=== PATIENT | female | born 1950 | race Hispanic/Latino ===

== ENCOUNTER 2017-07-21 10:29 | Inpatient (IN) | payer OTHER ==
[2017-07-21] MEDS ORDERED: ONDANSETRON 4 MG/2 ML VIAL ONE (14:15)
[2017-07-21] MEDS ORDERED: MORPHINE 4 MG/ML SYR ONE ×2 (14:15→17:08)
--- NOTE | 2017-07-21 15:02 | RAD REPORT ---
EXAM DESCRIPTION: RAD - Foot Right 3 View - 07/21/2017 2:18 pm CLINICAL HISTORY: Pain and swelling right first toe COMPARISON: None. FINDINGS: No fracture, dislocation or periosteal reaction of the first toe. There is subtle cortical irregularity along the medial base second proximal phalanx only appreciated on 1 of the three views. Fracture is not likely unless there are focal symptoms at the base of the se cond proximal phalanx. [id number] degenerative change present at the first MTP joint. There is mild IP joint space nirmal rowing at the first toe. No erosive or destructive changes identifiable. No air or foreign body seen. Patient has a large plantar spur and a small Achilles spur. Midfoot degenerative changes relatively mild. No air or foreign body in the soft tissues. IMPRESSION: Soft tissue swelling around the first toe is present but no air or foreign body identifi able. Mild first toe IP joint and mild to moderate first MTP joint degenerative change. No acute or destruc tive bone process. Osteomyelitis can exist prior to bone destruction on film. Subtle irregularity of the base second proximal phalanx seen only on one view. Fracture is doubtful.
[2017-07-21 15:04] LABS: Potassium 4.4 mEq/L (3.6-5.0)
[2017-07-21] MEDS ORDERED: VANCOMYCIN 1 GM/250 ML BAG ONE (15:20)
[2017-07-21] MEDS ORDERED: Levofloxacin500mg IV 500 MG/100 ML BAG IV ONE (15:20)
[2017-07-21 15:58] LABS: Absolute Lymphocytes (CBC) 1.4 K/uL (0.7-4.9); Absolute Monocytes 0.4 K/uL (0.1-1.3); Absolute Neutrophil 8.9 K/uL (1.8-8.0); Basophils % 0.3 % (0-1.3); Eosinophils % 0.6 % (0-4.4); Hematocrit 32.8 % (36.0-45.0); MCH 29.1 pg (27.0-35.0); MPV 8.3 fL (7.6-11.3); Monocytes % 4.1 % (3.3-12.3); RBC Red Blood Cell Count 3.86 M/uL (3.86-4.86)
[2017-07-21 16:51] LABS: Urine Blood NEGATIVE (NEG); Urine Glucose NEGATIVE (NEG); Urine Protein NEGATIVE (NEG); Urine Specific Gravity 1.015 (1.005-1.030)
--- NOTE | 2017-07-21 16:54 | ER ---
Nurse's Notes [facility] Name: Mariah Jones Age: 67 yrs Sex: Female : 1950 Arrival Date: 07/21/2017 Time: 10:33 Bed 5 Private MD: None, None Diagnosis: Cellulitis of right toe;Cutaneous abscess of foot Presentation: 07/21 10:52 Presenting complaint: Patient states: Pain and redness to right great toe since aj Tuesday. Patient reports removing an ingrown toenail recently and then dropping a can on her toe on Tuesday. Transition of care: patient was not received from another setting of care. Onset of symptoms was July 19, 2017. Care prior to arrival: None. 10:52 Method Of Arrival: Wheelchair 10:52 Acuity: AMEE 3 15:18 Risk Assessment: Do you want to hurt yourself or someone else? Patient reports no tw2 desire to harm self or others. Initial Sepsis Screen: Does the patient meet any 2 criteria? HR > 90 bpm. Does the patient have a suspected source of infection? Yes: Skin breakdown/wound Other: Right great toenail. Triage Assessment: 10:54 General: Appears in no apparent distress. comfortable, Behavior is calm, cooperative, aj agitated. Pain: Complains of pain in right first toe and Right first toenail. Neuro: Level of Consciousness is awake, alert, obeys commands, Oriented to person, place, time, situation, Appropriate for age. Respiratory: Airway is patent Respiratory effort is even, unlabored, Respiratory pattern is regular, symmetrical. Derm: Skin is intact, is healthy with good turgor, Skin is pink, warm \T\ dry. normal, Wound noted right first toe and Right first toenail. Historical: - Allergies: 10:54 GABAPENTIN; aj - PMHx: 10:54 Diabetes - NIDDM; aj - PSHx: 10:54 Heart Surgery; Knee surgery; Hysterectomy; aj - Immunization history:: Last tetanus immunization: unknown. - Social history:: Smoking status: Patient/guardian denies using tobacco. - Ebola Screening: : Patient denies travel to an Ebola-affected area in the 21 days before illness onset. Screenin:17 Abuse screen: Denies threats or abuse. Nutritional screening: No deficits noted. tw2 Tuberculosis screening: No symptoms or risk factors identified. Fall Risk None identified. Assessment: 14:33 Reassessment: Patient appears in no apparent distress at this time. No changes from rv previously documented assessment. Patient and/or family updated on plan of care and expected duration. Pain level reassessed. Patient is alert, oriented x 3, equal unlabored respirations, skin warm/dry/pink. 15:17 Reassessment: Patient appears in no apparent distress at this time. No changes from tw2 previously documented assessment. Patient and/or family updated on plan of care and expected duration. Pain level reassessed. Patient is alert, oriented x 3, equal unlabored respirations, skin warm/dry/pink. 16:17 Reassessment: Patient appears in no apparent distress at this time. No changes from tw2 previously documented assessment. Patient and/or family updated on plan of care and expected duration. Pain level reassessed. Patient is alert, oriented x 3, equal unlabored respirations, skin warm/dry/pink. 17:00 Reassessment: Patient appears in no apparent distress at this time. No changes from tw2 previously documented assessment. Patient and/or family updated on plan of care and expected duration. Pain level reassessed. Patient is alert, oriented x 3, equal unlabored respirations, skin warm/dry/pink. 18:01 Reassessment: Patient appears in no apparent distress at this time. No changes from tw2 previously documented assessment. Patient and/or family updated on plan of care and expected duration. Pain level reassessed. Patient is alert, oriented x 3, equal unlabored respirations, skin warm/dry/pink. 19:29 General: Appears in no apparent distress. comfortable, Behavior is calm, cooperative, ao appropriate for age. Pain: Complains of pain in back. Neuro: Level of Consciousness is awake, alert, obeys commands, Oriented to person, place, time, situation, Appropriate for age. Cardiovascular: Patient's skin is warm and dry. Respiratory: Airway is patent Respiratory effort is even, unlabored, Respiratory pattern is regular, symmetrical. GI: Abdomen is non-distended. : No signs and/or symptoms were reported regarding the genitourinary system. EENT: No signs and/or symptoms were reported regarding the EENT system. Derm: Skin is intact, Skin temperature is warm. Musculoskeletal: No signs and/or symptoms reported regarding the musculoskeletal system. Vital Signs: 10:54 BP 126 / 90; Pulse 120; Resp 19; Temp 98.4; Pulse Ox 94% on R/A; Weight 86.18 kg; aj Height 5 ft. 2 in. (157.48 cm); 14:33 BP 174 / 79; Pulse 108; Resp 16; Pulse Ox 95% on R/A; rv 15:11 BP 164 / 76; Pulse 105; Resp 17; Pulse Ox 100% on R/A; ag 16:12 BP 160 / 133; Pulse 109; Resp 17; Pulse Ox 97% on R/A; tw2 17:00 BP 145 / 69; Pulse 108; Resp 14; Pulse Ox 96% on R/A; tw2 18:00 BP 150 / 71; Pulse 109; Resp 20; Pulse Ox 96% on R/A; tw2 19:21 BP 134 / 74; Pulse 126; Resp 18; Temp 100.3(O); Pulse Ox 98% on R/A; lp1 19:29 BP 134 / 74; Pulse 116; Resp 16; Pulse Ox 96% on R/A; Pain 4/10; ao 10:54 Body Mass Index 34.75 (86.18 kg, 157.48 cm) aj ED Course: 10:33 Patient arrived in ED. mr 10:34 None, None is Private Physician. mr 10:53 Triage completed. aj 10:54 Arm band placed on right wrist. Patient placed in waiting room, Patient notified of aj wait time. 11:55 Notified Charge Nurse of Patient's vital signs and need for room. aj 13:40 Marcos Ryan PA is PHCP. jr8 13:40 Damon Soni MD is Attending Physician. jr8 13:40 Placed in gown. Bed in low position. front desk monitor on. Pulse ox on. NIBP on. Warm tw2 blanket given. 13:57 Nicky Pendleton, ALEXANDRO is Primary Nurse. tw2 14:14 X-ray completed. Portable x-ray completed in exam room. Patient tolerated procedure ml well. 14:15 XRAY Foot RIGHT 3 View In Process Unspecified. EDMS 14:25 Inserted saline lock: 22 gauge in left antecubital area, using aseptic technique. Blood tw2 collected. 16:53 Deana Goins MD is Hospitalizing Provider. jr8 18:02 No provider procedures requiring assistance completed. tw2 18:02 Patient admitted, IV remains in place. tw2 19:36 Primary Nurse role handed off by Nicky Pendleton RN tw2 19:39 Sayra Hi, ALEXANDRO is Primary Nurse. lp1 Administered Medications: 14:28 Drug: Zofran 4 mg Route: IVP; Site: left antecubital; tw2 15:00 Follow up: Response: No adverse reaction tw2 14:30 Drug: morphine 4 mg Route: IVP; Site: left antecubital; tw2 15:00 Follow up: Response: No adverse reaction tw2 15:41 Drug: vancoMYCIN 1 grams Route: IVPB; Infused Over: 2 hrs; Site: left antecubital; rv 19:08 Follow up: IV Status: Completed infusion ae1 15:41 Drug: LevaQUIN 500 mg Volume: 100 ml; Route: IVPB; Infused Over: 60 mins; Site: left rv antecubital; 19:08 Follow up: IV Status: Completed infusion ae1 17:09 Drug: morphine 4 mg Route: IVP; Site: left antecubital; ae1 17:45 Follow up: Response: No adverse reaction; Pain is decreased tw2 Point of Care Testing: Blood Glucose: 14:28 Blood Glucose: 247 mg/dL; tw2 19:23 Blood Glucose: 310 mg/dL; lp1 Ranges: Outcome: 16:53 Decision to Hospitalize by Provider. jr8 18:02 Admitted to Med/surg accompanied by nurse, via wheelchair, Report called to receiving tw2 nurse 18:02 Condition: stable 18:02 Instructed on the need for admit. 19:46 Admitted to Med/surg accompanied by tech, via wheelchair, room 205, with chart, Report lp1 called to Jaimee Burks RN 19:54 Patient left the ED. lp1 Signatures: Dispatcher [employer] EDMS Aline Blackburn RN RN aj Rivera, Maria mr Syed, Sayra Peace RN RN lp1 Marcos Ryan PA PA jr8 Wendie Mascorro Alex, RN RN ao Wise, Tara, RN RN tw2 Usman Rogers RN RN ae1 John Martinez RN RN rv Corrections: (The following items were deleted from the chart) 10:55 10:54 Arm band placed on right wrist. Patient placed in an exam room, aj aj 14:36 14:30 morphine 4 mg IVP in left antecubital rv tw2 14:36 14:28 Zofran 4 mg IVP in left antecubital rv tw2 14:36 14:36 Response: No adverse reaction tw2 tw2
--- NOTE | 2017-07-21 16:54 | EDPHYS ---
Physician Documentation [facility] Name: Mariah Jones Age: 67 yrs Sex: Female : 1950 Arrival Date: 07/21/2017 Time: 10:33 Bed 5 Private MD: None, None ED Physician Damon Soni HPI: 07/21 16:44 This 67 yrs old Female presents to ER via Wheelchair with complaints of Toe jr8 Pain. 16:44 The patient presents with pain, swelling, tenderness. The complaints affect the right jr8 foot. Context: The problem was sustained at home. Onset: The symptoms/episode began/occurred gradually, 3 day(s) ago. Modifying factors: The symptoms are alleviated by nothing, the symptoms are aggravated by weight bearing, movement, wearing shoes. Associated signs and symptoms: The patient has no apparent associated signs or symptoms. Severity of symptoms: At their worst the symptoms were moderate, in the emergency department the symptoms are unchanged. The patient has not experienced similar symptoms in the past. The patient has not recently seen a physician. Patient stated that she tried to get an ingrown nail out of her great toe on right side. Stated that since then has had increased redness, swelling, and now exudate formation under the skin. Cannot bear the pain . Historical: - Allergies: 10:54 GABAPENTIN; aj - PMHx: 10:54 Diabetes - NIDDM; aj - PSHx: 10:54 Heart Surgery; Knee surgery; Hysterectomy; aj - Immunization history:: Last tetanus immunization: unknown. - Social history:: Smoking status: Patient/guardian denies using tobacco. - Ebola Screening: : Patient denies travel to an Ebola-affected area in the 21 days before illness onset. ROS: 16:44 Eyes: Negative for injury, pain, redness, and discharge, ENT: Negative for injury, jr8 pain, and discharge, Neck: Negative for injury, pain, and swelling, Cardiovascular: Negative for chest pain, palpitations, and edema, Respiratory: Negative for shortness of breath, cough, wheezing, and pleuritic chest pain, Abdomen/GI: Negative for abdominal pain, nausea, vomiting, diarrhea, and constipation, Back: Negative for injury and pain, Skin: Negative for injury, rash, and discoloration, Neuro: Negative for headache, weakness, numbness, tingling, and seizure. 16:44 MS/extremity: Positive for erythema, pain, swelling, tenderness, of the right first toe. Exam: 16:44 Cardiovascular: Regular rate and rhythm with a normal S1 and S2. No gallops, murmurs, jr8 or rubs. Normal PMI, no JVD. No pulse deficits. Respiratory: Lungs have equal breath sounds bilaterally, clear to auscultation and percussion. No rales, rhonchi or wheezes noted. No increased work of breathing, no retractions or nasal flaring. Skin: Warm, dry with normal turgor. Normal color with no rashes, no lesions, and no evidence of cellulitis. Neuro: Awake and alert, GCS 15, oriented to person, place, time, and situation. Cranial nerves II-XII grossly intact. Motor strength 5/5 in all extremities. Sensory grossly intact. Cerebellar exam normal. Normal gait. 16:44 Musculoskeletal/extremity: Extremities: grossly normal except: noted in the right first toe: Patient has a swollen red right great toe. Abscess formation noted to lateral cuticle region. Surrounding cellulitis present. , ROM: intact in all extremities, Circulation is intact in all extremities. Sensation intact. Vital Signs: 10:54 BP 126 / 90; Pulse 120; Resp 19; Temp 98.4; Pulse Ox 94% on R/A; Weight 86.18 kg; aj Height 5 ft. 2 in. (157.48 cm); 14:33 BP 174 / 79; Pulse 108; Resp 16; Pulse Ox 95% on R/A; rv 15:11 BP 164 / 76; Pulse 105; Resp 17; Pulse Ox 100% on R/A; ag 16:12 BP 160 / 133; Pulse 109; Resp 17; Pulse Ox 97% on R/A; tw2 17:00 BP 145 / 69; Pulse 108; Resp 14; Pulse Ox 96% on R/A; tw2 18:00 BP 150 / 71; Pulse 109; Resp 20; Pulse Ox 96% on R/A; tw2 19:21 BP 134 / 74; Pulse 126; Resp 18; Temp 100.3(O); Pulse Ox 98% on R/A; lp1 19:29 BP 134 / 74; Pulse 116; Resp 16; Pulse Ox 96% on R/A; Pain 4/10; ao 10:54 Body Mass Index 34.75 (86.18 kg, 157.48 cm) aj MDM: 13:40 Patient medically screened. [facility] 16:44 Data reviewed: vital signs, nurses notes, lab test result(s), radiologic studies, plain [facility] films, and as a result, I will admit patient. Data interpreted: Pulse oximetry: on room air is 97 %. Interpretation: normal. Counseling: I had a detailed discussion with the patient and/or guardian regarding: the historical points, exam findings, and any diagnostic results supporting the discharge/admit diagnosis, lab results, radiology results, the need for further work-up and treatment in the hospital. Physician consultation: Deana Goins MD was called at 16:47, was contacted at 16:47, regarding admission, to the medical/surgical unit. consult, patient's condition, and will see patient. 07/21 14:05 Order name: CBC with Diff; Complete Time: 16:09 [facility] 07/21 14:05 Order name: Basic Metabolic Panel; Complete Time: 15:10 [facility] 07/21 14:06 Order name: Blood Culture Adult (2) [facility] 07/21 16:27 Order name: Urine Dipstick--Ancillary (enter results) 07/21 17:06 Order name: C-Reactive Protein [facility] 07/21 17:06 Order name: Procalcitonin [facility] 07/21 14:05 Order name: XRAY Foot RIGHT 3 View; Complete Time: 15:10 [facility] 07/21 17:06 Order name: CONS [facility] Cons [facility] 07/21 17:06 Order name: CONS Physician Consult [facility] 07/21 14:05 Order name: IV; Complete Time: 14:32 [facility] 07/21 17:06 Order name: Heart Healthy [facility] Administered Medications: 14:28 Drug: Zofran 4 mg Route: IVP; Site: left antecubital; tw2 15:00 Follow up: Response: No adverse reaction tw2 14:30 Drug: morphine 4 mg Route: IVP; Site: left antecubital; tw2 15:00 Follow up: Response: No adverse reaction tw2 15:41 Drug: vancoMYCIN 1 grams Route: IVPB; Infused Over: 2 hrs; Site: left antecubital; rv 19:08 Follow up: IV Status: Completed infusion ae1 15:41 Drug: LevaQUIN 500 mg Volume: 100 ml; Route: IVPB; Infused Over: 60 mins; Site: left rv antecubital; 19:08 Follow up: IV Status: Completed infusion ae1 17:09 Drug: morphine 4 mg Route: IVP; Site: left antecubital; ae1 17:45 Follow up: Response: No adverse reaction; Pain is decreased tw2 Point of Care Testing: Blood Glucose: 14:28 Blood Glucose: 247 mg/dL; tw2 19:23 Blood Glucose: 310 mg/dL; lp1 Ranges: Critical Glucose Levels:Adult <50 mg/dl or >400 mg/dl <40 mg/dl or >180 mg/dl Disposition: 07/22 10:43 Co-signature as Attending Physician, Damon Soni MD I agree with the assessment and kdr plan of care. Disposition: 07/21/17 16:53 Hospitalization ordered by Deana Goins for Inpatient Admission. Preliminary diagnosis are Cellulitis of right toe, Cutaneous abscess of foot. - Bed requested for Telemetry/MedSurg (Inpatient). - Status is Inpatient Admission. lp1 - Condition is Stable. - Problem is new. - Symptoms have improved. UTI on Admission? No Signatures: Dispatcher [employer] EDMS Consuelo Linares Diana, RN RN dw Aline Blackburn RN RN aj Rittger, Kevin, MD MD [facility] Sayra Hi RN RN lp1 Marcos Ryan PA PA jr8 Nicky Pendleton RN RN tw2 Usman Rogers RN RN ae1 John Martinez RN RN rv Corrections: (The following items were deleted from the chart) 07/21 17:51 16:53 Hospitalization Ordered by Deana Goins MD for Inpatient Admission. Preliminary bd diagnosis is Cellulitis of right toe; Cutaneous abscess of foot. Bed requested for Telemetry/MedSurg (Inpatient). Status is Inpatient Admission. Condition is Stable. Problem is new. Symptoms have improved. UTI on Admission? No. jr8 19:02 17:51 07/21/2017 16:53 Hospitalization Ordered by Deana Goins MD for Inpatient dw Admission. Preliminary diagnosis is Cellulitis of right toe; Cutaneous abscess of foot. Bed requested for Telemetry/MedSurg (Inpatient). Status is Inpatient Admission. Condition is Stable. Problem is new. Symptoms have improved. UTI on Admission? No. bd 19:07 19:02 07/21/2017 16:53 Hospitalization Ordered by Deana Goins MD for Inpatient dw Admission. Preliminary diagnosis is Cellulitis of right toe; Cutaneous abscess of foot. Bed requested for Telemetry/MedSurg (Inpatient). Status is Inpatient Admission. Condition is Stable. Problem is new. Symptoms have improved. UTI on Admission? No. dw 19:26 19:07 07/21/2017 16:53 Hospitalization Ordered by Deana Goins MD for Inpatient dw Admission. Preliminary diagnosis is Cellulitis of right toe; Cutaneous abscess of foot. Bed requested for Telemetry/MedSurg (Inpatient). Status is Inpatient Admission. Condition is Stable. Problem is new. Symptoms have improved. UTI on Admission? No. dw 19:54 19:26 07/21/2017 16:53 Hospitalization Ordered by Deana Goins MD for Inpatient lp1 Admission. Preliminary diagnosis is Cellulitis of right toe; Cutaneous abscess of foot. Bed requested for Telemetry/MedSurg (Inpatient). Status is Inpatient Admission. Condition is Stable. Problem is new. Symptoms have improved. UTI on Admission? No. dw
[2017-07-21] MEDS ORDERED: ONDANSETRON 4 MG/2 ML VIAL IV PRN (17:01)
[2017-07-21] MEDS ORDERED: ACETAMINOPHEN 500 MG TAB PO PRN (17:01)
--- NOTE | 2017-07-21 17:28 | P.HP ---
Certification for Inpatient Patient admitted to: Observation With expected LOS: <2 Midnights Patient will require the following post-hospital care: None Practitioner: I am a practitioner with admitting privileges, knowledge of patient current condition, hospital course, and medical plan of care. Services: Services provided to patient in accordance with Admission requirements found in Title 42 Section 412.3 of the Code of Federal Regulations Patient History Date of Service: 07/21/17 Primary Care Provider: None Reason for admission: Right Toe Infection History of Present Illness: This is a 67-year-old female with significant past medical history of diabetes, high blood pressure, hyperlipidemia and obesity who presented to the ED complaining of having right great toe pain. Patient stated that she started noticing her right great chest swelling about 2-3 days ago and got progressively worse. Patient stated that she has an ingrown nail that she was trying to get out and then started noticing that her toe was getting infected. Today she was in not able to bear any weight on the fact in the area and was not able to bend her however as well and decided to come to the ER for further care. Patient stated that this morning she also dropped a cane on her foot that hit her right great toe as well. Patient states that the pain is excruciating. No fever no chills noted at home. No other associated symptoms either. Patient states that she is still able to feel sensation on the side however is not able to bear weight on the toe. Allergies gabapentin Adverse Reaction (Verified 02/19/16 19:21) Nausea/Vomiting Home Medications: Amlodipine/Atorvastatin [Amlodipine-Atorvast 10-40 mg] 10 mg PO DAILY 02/19/16 Aspirin [Aspirin EC 81 MG] 81 mg PO DAILY 02/19/16 Carisoprodol 350 mg PO Q4H PRN 02/19/16 Glimepiride [Amaryl] 4 mg PO BID 02/19/16 Hydrocodone Bit/Acetaminophen [[place] 10-325 Tablet] 1 each PO Q4H PRN 02/19/16 Multivitamin [Tab-A-Cristin] 1 tab PO DAILY 02/19/16 Amitriptyline [Elavil*] 10 mg PO BEDTIME #30 tab 02/20/16 - Past Medical/Surgical History Diabetic: Yes -: DM -: HTN -: Hysterectomy -: Aortic Valve Replacement - Family History Father -: Heart disease, Hypertension, Diabetes Brother -: Heart disease, Stroke Notes: both brothers had stroke. 2 brothers had heart disease Sister -: Diabetes Mother -: Diabetes - Social History Alcohol use: Yes CD- Drugs: No Caffeine use: Yes Review of Systems General: As per HPI Physical Examination - Physical Exam General: Alert, In no apparent distress, Oriented x3 HEENT: Atraumatic Neck: Supple Respiratory: Clear to auscultation bilaterally, Normal air movement Cardiovascular: Regular rate/rhythm, Normal S1 S2 Gastrointestinal: Normal bowel sounds, Soft and benign, Non-distended, No tenderness Musculoskeletal: No tenderness Integumentary: Tenderness/swelling, Erythema, Warmth, Other (Right Great toe with Erythema, warmth and tenderness. Ingrown toe nail noted. ) Neurological: Normal speech, Normal strength at 5/5 x4 extr, Normal tone Lymphatics: No axilla or inguinal lymphadenopathy - Studies Laboratory Data (last 24 hrs) 07/21/17 14:20: Sodium 137, Potassium 4.4, BUN 9, Creatinine 0.84, Glucose 246 H 07/21/17 14:20: WBC 10.9, Hgb 11.2 L, Hct 32.8 L, Plt Count 354 Assessment and Plan - Problems (Diagnosis) (1) Wound infection Current Visit: Yes Status: Acute Plan: Wound infection of the right great toe. -IV vanc and zosyn -Wound culture pending -Blood culture pending -Surgery Consulted for possible debriement (2) Ingrown nail of great toe of right foot Current Visit: Yes Status: Acute Plan: See # 1 (3) Diabetes Current Visit: Yes Status: Chronic Plan: Restart home medication Qualifiers: Diabetes mellitus type: type 2 Diabetes mellitus intermodal dispatcher insulin use: without intermodal dispatcher use Diabetes mellitus complication status: with circulatory complication Diabetes mellitus complication detail: with other circulatory complications Qualified Code(s): E11.59 - Type 2 diabetes mellitus with other circulatory complications (4) HTN (hypertension) Current Visit: Yes Status: Chronic Qualifiers: Hypertension type: essential hypertension Qualified Code(s): I10 - Essential (primary) hypertension (5) Hyperlipidemia Current Visit: Yes Status: Chronic Qualifiers: Hyperlipidemia type: mixed hyperlipidemia Qualified Code(s): E78.2 - Mixed hyperlipidemia - Advance Directives Does patient have a Living Will: No Does patient have a Durable POA for Healthcare: No
[2017-07-21] MEDS ORDERED: VANCOMYCIN 1.25 GM in NA CHLORIDE 0.9% 250 ML IVPB SCH (18:00)
[2017-07-21] MEDS: VANCOMYCIN 1.5 GM in NA CHLORIDE 0.9% 500 ML IVPB SCH (18:00)
[2017-07-21] MEDS ORDERED: ACETAMINOPHEN 500 MG TAB ONE (19:26)
[2017-07-21 20:51] LABS: Urine Appearance CLEAR; Urine Bilirubin NEGATIVE (NEG); Urine Blood NEGATIVE (NEG); Urine Color YELLOW; Urine Glucose 1+ (NEG); Urine Protein NEGATIVE (NEG); Urine Specific Gravity 1.015 (1.005-1.030); Urine Urobilinogen 0.2 mg/dL (0.2-1.0); Urine pH 6.5 (5.0-7.0)
[2017-07-21] MEDS ORDERED: PNEUMOCOCCAL VACCINE 0.5 ML IMVAC ONE (20:55)
[2017-07-21 20:58] LABS: Urine Microscopic Reflex NO UMIC
[2017-07-21] MEDS ORDERED: VANCOMYCIN 500 MG in NA CHLORIDE 0.9% 100 ML IV ONE (21:30)
[2017-07-21] MEDS ORDERED: VANCOMYCIN 500 MG/VIAL ONE (21:31)
[2017-07-21] MEDS ORDERED: NA CHLORIDE 0.9% 100 ML ONE (21:32)
[2017-07-21] MEDS: MORPHINE 4 MG/ML SYR IV PRN (22:01)
[2017-07-21] MEDS: INSULIN -REGULAR HUMAN 50 UNIT/0.5 ML ML SQ SCH (22:02)
[2017-07-21] MEDS: PIPER/TAZO/NS 3.375gm 3.375 GM/100 ML BAG IVPB SCH (22:03)
[2017-07-21] MEDS: NA CHLORIDE 0.9% 1,000 ML IV SCH (22:04)
[2017-07-22] MEDS: PIPER/TAZO/NS 3.375gm 3.375 GM/100 ML BAG IVPB SCH ×4 (02:25→17:37)
[2017-07-22] MEDS: MORPHINE 4 MG/ML SYR IV PRN ×2 (04:16→08:18)
[2017-07-22] MEDS: NA CHLORIDE 0.9% 1,000 ML IV SCH ×3 (04:18→16:45)
[2017-07-22 05:07] LABS: Absolute Monocytes 0.6 K/uL (0.1-1.3); Absolute Neutrophil 5.3 K/uL (1.8-8.0); Basophils % 0.5 % (0-1.3); Hematocrit 28.7 % (36.0-45.0); Lymphocytes % 24.8 % (15.3-44.8); MCH 32.2 pg (27.0-35.0); MCV 94.6 fL (80-100); MPV 7.7 fL (7.6-11.3); Monocytes % 7.4 % (3.3-12.3); RBC Red Blood Cell Count 3.03 M/uL (3.86-4.86)
[2017-07-22 05:23] LABS: Albumin 3.5 g/dL (3.2-5.5); Bilirubin Total 0.5 mg/dL (0.3-1.2); Magnesium 1.6 mg/dL (1.8-2.5); Phosphorus 3.6 mg/dL (2.5-4.3); Potassium 3.7 mEq/L (3.6-5.0); Protein, Total 6.9 g/dL (6.0-8.3)
[2017-07-22] MEDS ORDERED: MAGNESIUM SULFATE 1 gm IVPB 1 GM/100 ML BAG IV ONE ×2 (05:49→08:00)
[2017-07-22] MEDS ORDERED: KCL 20 MEQ/100 mL IVPB 20 MEQ/100 ML BAG IV SCH (05:52)
[2017-07-22] MEDS: INSULIN -REGULAR HUMAN 50 UNIT/0.5 ML ML SQ SCH ×4 (08:22→21:25)
--- NOTE | 2017-07-22 12:08 | P.OP ---
Preoperative diagnosis: Infected Right Great Toe Wound Postoperative diagnosis: same Primary procedure: I and D and Debridement Right Great Toe Wound Secondary procedure: Partial Resection of the Nail Anesthesia: General Estimated blood loss: min Specimen: Pus and Nail Findings: as above Complications: None Transferred to: Recovery Room Condition: Good
[2017-07-22] MEDS ORDERED: MIDAZOLAM HCL 2 MG/2 ML INJ ONE (12:15)
[2017-07-22] MEDS ORDERED: FENTANYL CITR 250 MCG/5 ML ONE (12:15)
[2017-07-22] MEDS ORDERED: PROPOFOL 200 MG/20 ML VIAL IV ONE (12:15)
[2017-07-22] MEDS ORDERED: ONDANSETRON HCL 40 MG/20 ML VIAL ONE (12:15)
--- NOTE | 2017-07-22 14:15 | P.PN ---
Subjective Date of Service: 07/22/17 Primary Care Provider: None Chief Complaint: Right Toe Infection Subjective: Other (Patient with pain to the right great toe. Patient NPO for surgery.) Physical Examination - Vital Signs Temperature: 97.4 F Blood Pressure: 127/69 Pulse: 89 Respirations: 16 Pulse Ox (%): 96 - Physical Exam General: Alert, In no apparent distress, Oriented x3, Cooperative HEENT: Atraumatic Neck: Supple Respiratory: Clear to auscultation bilaterally, Normal air movement Cardiovascular: Normal pulses, Regular rate/rhythm Gastrointestinal: Normal bowel sounds, Soft and benign, Non-distended, No tenderness, No masses, No rebound, No guarding Integumentary: Other (Erythema, swelling to the right great toe. Ingrown toenail noted.) Neurological: Normal speech, Normal strength at 5/5 x4 extr, Normal tone, Normal affect - Studies Laboratory Data (last 24 hrs) 07/21/17 14:20: Sodium 137, Potassium 4.4, BUN 9, Creatinine 0.84, Glucose 246 H 07/21/17 14:20: WBC 10.9, Hgb 11.2 L, Hct 32.8 L, Plt Count 354 Medications List Reviewed: Yes Assessment & Plan - Problems (Diagnosis) (1) Anemia Current Visit: Yes Status: Chronic Plan: Patient with chronic anemia. Will check iron and B12 studies. Will monitor closely. Patient to have surgery today. Qualifiers: Anemia type: unspecified type Qualified Code(s): D64.9 - Anemia, unspecified (2) Ingrown nail of great toe of right foot Current Visit: Yes Status: Acute Plan: Patient has ingrown great toenail of right foot. Increase edema noted. Patient likely with infection process. Patient on IV vancomycin and Zosyn. Surgery is to be done today. Case discussed with surgery. Will continue with IV antibiotic therapy. Await culture results. Patient may require 2-3 days in the hospital. (3) Wound infection Current Visit: Yes Status: Acute Plan: Continue as above. (4) Diabetes Current Visit: Yes Status: Chronic Plan: Will restart her basal insulin. Will check A1c. Will monitor and adjust appropriately. Qualifiers: Diabetes mellitus type: type 2 Diabetes mellitus nursing home insulin use: without adjunct faculty for medical terminology use Diabetes mellitus complication status: with circulatory complication Diabetes mellitus complication detail: with other circulatory complications Qualified Code(s): E11.59 - Type 2 diabetes mellitus with other circulatory complications (5) HTN (hypertension) Current Visit: Yes Status: Chronic Plan: Will restart low-dose blood pressure medication. Will monitor and adjust appropriately. Qualifiers: Hypertension type: essential hypertension Qualified Code(s): I10 - Essential (primary) hypertension (6) Hyperlipidemia Current Visit: Yes Status: Chronic Plan: Will review home medication. Qualifiers: Hyperlipidemia type: mixed hyperlipidemia Qualified Code(s): E78.2 - Mixed hyperlipidemia Discharge Plan: Home Plan to discharge in: 48 Hours Time Spent Managing Pts Care (In Minutes): 55
[2017-07-22] MEDS ORDERED: D50W 25 GM/50 ML SYRINGE IV PRN (14:59)
[2017-07-22] MEDS ORDERED: GLUCAGON 1 MG/VIAL IM PRN (14:59)
[2017-07-22] MEDS: HYDROCODONE/APAP 10/325 TAB PO PRN ×2 (15:16→19:37)
--- NOTE | 2017-07-22 16:20 | PREOPCON ---
Date of Consultation: 07/21/2017 Reason: Infected right great toe. History Of Present Illness: The patient is a 67-year-old female with multiple medical problems, who came into the ER yesterday with right great toe pain. She started noticing swelling 2-3 days ago. S he dropped a can on her nail. She noticed that it was getting red and was getting more painful. She was picking at it. No fever or chills. No purulent discharge. Review of Systems: Otherwise unremarkable. Past Medical History: Significant for diabetes, hypertension, morbid obesity. Past Surgical History: Hysterectomy, aortic valve replacement. Allergies: GABAPENTIN. Social History: The patient does drink alcohol. Denies smoking. Family History: Significant for heart disease, stroke, and diabetes. Physical Examination: Vital Signs: Stable. She is afebrile. General: She is awake, alert, and oriented x3. Head and Neck: Cranial nerves 2 through 12 grossly within normal limits. No neck masses. No JVD. Throat clear. Neck is supple. Chest: Clear. Heart: S1, S2. Abdomen: Soft. Extremity: Palpable dorsalis pedis and posterior tibial pulses. The great toe on the right side is infected and has erythema, warmth, or edema. There is purulence and blister around the medial aspect of the toe on the distal as well as the medial. The toenail is digging into the soft tissue around the nail bed. There is no drainage. Laboratory Data: White count is 8.2, there was left shift on admission. Chemistry reviewed. Glucos e is elevated. Procalcitonin is less than 0.05. X-ray reviewed. It shows soft tissue swelling arou nd the first toe at present but no air or foreign body identifiable. Mild first toe IP joint. Mild to moderate first MTP joint degenerative changes. Fracture is doubtful. Assessment: Infected wound, right great toe. Recommendations: The patient will need incision and drainage and debridement of the abscess as well as try trimming the nail back a little bite away from the soft tissue to allow for better healing. T he antibiotics as ordered. We will institute local wound care after surgery. Discharge home once we get the cultures back. She can be discharged home on the appropriate oral antibiotics. The risks, benefits, alternatives were explained to place the patient. She understood and agreed. DUANE/JAMES Voice ID: [id number] Report ID: [id number]
[2017-07-22] MEDS: ENOXAPARIN 40 MG/0.4 ML SQ SCH (17:36)
[2017-07-22] MEDS: VANCOMYCIN 1.5 GM in NA CHLORIDE 0.9% 500 ML IVPB SCH (17:37)
[2017-07-22] MEDS ORDERED: INSULIN DETEMIR 14 UNIT SQ SCH (21:00)
[2017-07-22] MEDS ORDERED: INSULIN DETEMIR 100 UNIT/1 ML INSULIN SQ SCH (21:00)
[2017-07-22] MEDS: AMITRIPTYLINE 10 MG TAB PO SCH (21:24)
[2017-07-23] MEDS: HYDROCODONE/APAP 10/325 TAB PO PRN ×5 (00:09→21:26)
--- NOTE | 2017-07-23 00:10 | OP ---
Date of Procedure: 07/22/2017 Surgeon: Adelfo Bella MD Preoperative Diagnosis: Infected wound, right great toe with ingrown toenail. Postoperative Diagnosis: Infected wound, right great toe with ingrown toenail. Procedure: Incision, drainage and debridement of right toe infected wound and partial resection of t he toe nail. Estimated Blood Loss: Minimal. Specimen: Nail and pus. Findings: As above. Anesthesia: General. Complications: None. Disposition: The patient tolerated the procedure in stable condition and taken to recovery in good g eneral condition. Procedure In Detail: The patient was brought to the OR and placed in supine position. General anest hesia was begun. The patient was prepped and draped in the usual sterile fashion, Marcaine 0 5% used to do a digital block on the right great toe and then sharp dissection proceeded on the distal media l aspect of the right great toe near the nail bed. There was large pus there. It was unroofed. The skin was removed. Pus was evacuated. Cultures were done. The nail was dug into the soft tissue ar ound it and this was with rongeur, cut, debrided back all the way to the base of the nail bed until c omplete freeing of this area was done, then wound irrigated, bleeding controlled with cautery and sterile dressing was applied. The patient was awakened and taken to [facility] in good general condition. DUANE/JAMES Voice ID: [id number] Report ID: [id number]
[2017-07-23] MEDS: NA CHLORIDE 0.9% 1,000 ML IV SCH ×2 (00:12→10:00)
[2017-07-23] MEDS: PIPER/TAZO/NS 3.375gm 3.375 GM/100 ML BAG IVPB SCH ×4 (00:12→18:06)
[2017-07-23 04:47] VITALS: BMI 34.9
[2017-07-23 06:00] LABS: Absolute Lymphocytes (CBC) 2.5 K/uL (0.7-4.9); Absolute Monocytes 0.5 K/uL (0.1-1.3); Absolute Neutrophil 4.2 K/uL (1.8-8.0); Basophils % 1.1 % (0-1.3); Eosinophils % 3.4 % (0-4.4); Hematocrit 28.4 % (36.0-45.0); Lymphocytes % 32.7 % (15.3-44.8); MCH 29.2 pg (27.0-35.0); MCV 85.8 fL (80-100); MPV 8.1 fL (7.6-11.3); Monocytes % 7.2 % (3.3-12.3); RBC Red Blood Cell Count 3.31 M/uL (3.86-4.86)
[2017-07-23 06:16] LABS: Bilirubin Total 0.5 mg/dL (0.3-1.2); Ferritin 41.2 ng/ml (11.0-306.8); Magnesium 1.7 mg/dL (1.8-2.5); Potassium 4.1 mEq/L (3.6-5.0); Protein, Total 6.2 g/dL (6.0-8.3); Thyroid Stimulating Hormone 1.45 uIU/mL (0.34-5.60)
[2017-07-23] MEDS ORDERED: MAGNESIUM SULFATE 1 gm IVPB 1 GM/100 ML BAG IV ONE (06:45)
[2017-07-23] MEDS: MORPHINE 4 MG/ML SYR IV PRN (08:34)
[2017-07-23] MEDS: ASPIRIN EC 81 MG TAB PO SCH (08:35)
[2017-07-23] MEDS: INSULIN -REGULAR HUMAN 50 UNIT/0.5 ML ML SQ SCH ×4 (08:35→22:37)
[2017-07-23] MEDS ORDERED: AMLODIPINE 2.5 MG TAB PO SCH (09:00)
--- NOTE | 2017-07-23 12:03 | PN ---
Date of Progress Note: 07/23/2017 Subjective: The patient is awake, alert, feels better. Objective: Vital Signs. Stable. Afebrile. Extremities: Wound is clean. The redness is less. Laboratory Data: Cultures are pending, but initial Gram stain shows gram-positive cocci in chains an d clusters. Assessment: Status post incision, drainage and debridement of infected right great toe wound. Recommendations: Check the cultures and once we have specific bacteria and sensitivities, she can be discharged home on that. Wound care as ordered. She could follow up [facility] or my office in a couple of weeks. /MODL Voice ID: [id number] Report ID: [id number]
--- NOTE | 2017-07-23 13:25 | P.PN ---
Subjective Date of Service: 07/23/17 Primary Care Provider: None Chief Complaint: Right Toe Infection Subjective: Improving (Patient doing well. Pain under control. Patient status post surgery yesterday) Physical Examination - Vital Signs Temperature: 99.0 F Blood Pressure: 185/74 Pulse: 95 Respirations: 16 Pulse Ox (%): 94 - Physical Exam General: Alert, In no apparent distress, Oriented x3, Cooperative HEENT: Atraumatic Neck: Supple Respiratory: Clear to auscultation bilaterally, Normal air movement Cardiovascular: Normal pulses, Regular rate/rhythm Gastrointestinal: Normal bowel sounds, Soft and benign, Non-distended, No tenderness, No masses, No rebound, No guarding Integumentary: Other (Right toe shows partial nail removed. No significant edema noted.) Neurological: Normal speech, Normal strength at 5/5 x4 extr, Normal tone, Normal affect - Studies Medications List Reviewed: Yes Assessment & Plan - Problems (Diagnosis) (1) Anemia Current Visit: Yes Status: Chronic Plan: Patient found to have iron and B12 deficiency. Will start supplementation. Will monitor closely. Qualifiers: Anemia type: iron deficiency Iron deficiency anemia type: inadequate dietary iron intake Qualified Code(s): D50.8 - Other iron deficiency anemias (2) Ingrown nail of great toe of right foot Current Visit: Yes Status: Acute Plan: Patient had partial nail removed. Patient had debridement. Cultures obtained. Case discussed with surgery. Will continue IV antibiotic therapy. Will transition to oral and plan for discharge once culture results have been obtained. Will ambulate patient with physical therapy. Anticipate discharge in the next 1-2 days. (3) Wound infection Current Visit: Yes Status: Acute Plan: Continue as above. (4) Diabetes Current Visit: Yes Status: Chronic Plan: Will continue with insulin. Check A1c. Continue sliding scale. Qualifiers: Diabetes mellitus type: type 2 Diabetes mellitus parts counterman insulin use: without intermediate use Diabetes mellitus complication status: with circulatory complication Diabetes mellitus complication detail: with other circulatory complications Qualified Code(s): E11.59 - Type 2 diabetes mellitus with other circulatory complications (5) HTN (hypertension) Current Visit: Yes Status: Chronic Plan: Continue and adjust her medication Qualifiers: Hypertension type: essential hypertension Qualified Code(s): I10 - Essential (primary) hypertension (6) Hyperlipidemia Current Visit: Yes Status: Chronic Plan: Will continue with her medication Qualifiers: Hyperlipidemia type: mixed hyperlipidemia Qualified Code(s): E78.2 - Mixed hyperlipidemia Discharge Plan: Home Plan to discharge in: 24 Hours Time Spent Managing Pts Care (In Minutes): 55
[2017-07-23] MEDS: ENOXAPARIN 40 MG/0.4 ML SQ SCH (16:44)
[2017-07-23] MEDS: VANCOMYCIN 1.5 GM in NA CHLORIDE 0.9% 500 ML IVPB SCH (18:07)
[2017-07-23] MEDS: FERROUS SULFATE 325 MG TAB PO SCH (21:26)
[2017-07-23] MEDS: LISINOPRIL 10 MG TAB PO SCH (21:27)
[2017-07-23] MEDS: INSULIN DETEMIR 100 UNIT/1 ML INSULIN SQ SCH (22:39)
[2017-07-23] MEDS: AMITRIPTYLINE 10 MG TAB PO SCH (23:24)
[2017-07-24] MEDS: PIPER/TAZO/NS 3.375gm 3.375 GM/100 ML BAG IVPB SCH ×5 (00:59→23:47)
[2017-07-24] MEDS: HYDROCODONE/APAP 10/325 TAB PO PRN ×3 (05:26→21:16)
[2017-07-24 07:31] LABS: Albumin 3.3 g/dL (3.2-5.5); Bilirubin Total 0.4 mg/dL (0.3-1.2); Magnesium 1.9 mg/dL (1.8-2.5); Potassium 4.3 mEq/L (3.6-5.0); Protein, Total 6.6 g/dL (6.0-8.3)
[2017-07-24 08:02] LABS: Absolute Monocytes 0.4 K/uL (0.1-1.3); Basophils % 0.9 % (0-1.3); Eosinophils % 3.9 % (0-4.4); Lymphocytes % 25.3 % (15.3-44.8); MCH 28.2 pg (27.0-35.0); MCV 86.5 fL (80-100); Monocytes % 5.7 % (3.3-12.3); RBC Red Blood Cell Count 3.47 M/uL (3.86-4.86)
[2017-07-24] MEDS: INSULIN -REGULAR HUMAN 50 UNIT/0.5 ML ML SQ SCH ×4 (08:39→21:15)
[2017-07-24] MEDS: CYANOCOBALAMIN 1,000 MCG TAB PO SCH (08:40)
[2017-07-24] MEDS: FERROUS SULFATE 325 MG TAB PO SCH ×2 (08:40→21:16)
[2017-07-24] MEDS: ASPIRIN EC 81 MG TAB PO SCH (08:40)
[2017-07-24] MEDS: LISINOPRIL 10 MG TAB PO SCH ×2 (08:41→21:16)
[2017-07-24] MEDS ORDERED: AMLODIPINE 5 MG TAB PO SCH (09:00)
--- NOTE | 2017-07-24 11:43 | PN ---
Date of Progress Note: 07/24/2017 Subjective: The patient is awake, alert. No complaints. Objective: Vital Signs: Stable. Afebrile. Extremities: Dressing is clean, dry, and intact. Laboratory Data: Culture and sensitivity are still pending. Assessment: Status post incision and drainage and debridement, right great toe infection. Recommendations: Continue antibiotics, check cultures, and then the patient will be cleared for disc harge on oral antibiotics based on sensitivities. Wound care as ordered. Follow up with me in 1-2 w eeks. /MODL Voice ID: [id number] Report ID: [id number]
--- NOTE | 2017-07-24 12:32 | P.PN ---
Subjective Date of Service: 07/24/17 Primary Care Provider: None Chief Complaint: Right Toe Infection Subjective: Improving Physical Examination - Vital Signs Temperature: 97.6 F Blood Pressure: 164/74 Pulse: 72 Respirations: 18 Pulse Ox (%): 95 - Physical Exam General: Alert, In no apparent distress, Oriented x3, Cooperative HEENT: Atraumatic Neck: Supple Respiratory: Clear to auscultation bilaterally, Normal air movement Cardiovascular: Normal pulses, Regular rate/rhythm Gastrointestinal: Normal bowel sounds, Soft and benign, Non-distended, No masses , No rebound, No guarding Musculoskeletal: No erythema, No tenderness, No warmth Integumentary: Other (Right great toe: Postop her changes noted. Much improved. ) Neurological: Normal speech, Normal strength at 5/5 x4 extr, Normal tone, Normal affect - Studies Medications List Reviewed: Yes Assessment & Plan - Problems (Diagnosis) (1) Anemia Current Visit: Yes Status: Chronic Plan: Patient found to have iron and B12 deficiency. Continue with supplementation Qualifiers: Anemia type: iron deficiency Iron deficiency anemia type: inadequate dietary iron intake Qualified Code(s): D50.8 - Other iron deficiency anemias (2) Ingrown nail of great toe of right foot Current Visit: Yes Status: Acute Plan: Patient doing well. Patient had partial nail removed. Patient had debridement. Cultures obtained. Case discussed with surgery. Will continue IV antibiotic therapy. Will transition to oral and plan for discharge once culture results have been obtained. Will ambulate patient with physical therapy. Anticipate discharge in the next 1-2 days. (3) Wound infection Current Visit: Yes Status: Acute Plan: Continue as above. (4) Diabetes Current Visit: Yes Status: Chronic Plan: Will check A1c. Will continue to adjust insulin. Qualifiers: Diabetes mellitus type: type 2 Diabetes mellitus manager long term care insulin use: without manager long term care use Diabetes mellitus complication status: with circulatory complication Diabetes mellitus complication detail: with other circulatory complications Qualified Code(s): E11.59 - Type 2 diabetes mellitus with other circulatory complications (5) HTN (hypertension) Current Visit: Yes Status: Chronic Plan: Continue and adjust her medication Qualifiers: Hypertension type: essential hypertension Qualified Code(s): I10 - Essential (primary) hypertension (6) Hyperlipidemia Current Visit: Yes Status: Chronic Plan: Will continue with her medication Qualifiers: Hyperlipidemia type: mixed hyperlipidemia Qualified Code(s): E78.2 - Mixed hyperlipidemia (7) Obesity Current Visit: Yes Status: Chronic Plan: Will address lifestyle modification education Qualifiers: Obesity type: due to excess calories Obesity classification: adult class 1 (BMI 30 - 34.9) Serious obesity comorbidity presence: with serious comorbidity Body mass index: BMI 34.0-34.9 Qualified Code(s): E66.09 - Other obesity due to excess calories; Z68.34 - Body mass index (BMI) 34.0-34.9, adult Discharge Plan: Home Plan to discharge in: 24 Hours Time Spent Managing Pts Care (In Minutes): 55
[2017-07-24] MEDS: ENOXAPARIN 40 MG/0.4 ML SQ SCH (16:11)
[2017-07-24] MEDS: VANCOMYCIN 1.5 GM in NA CHLORIDE 0.9% 500 ML IVPB SCH (17:22)
[2017-07-24] MEDS: INSULIN DETEMIR 100 UNIT/1 ML INSULIN SQ SCH (21:15)
[2017-07-24] MEDS: BACI/NEOMYCIN/POLY OINT 15GM TOP SCH (21:17)
[2017-07-24] MEDS: AMITRIPTYLINE 10 MG TAB PO SCH (21:18)
[2017-07-24 22:11] VITALS: O2SAT 98
[2017-07-25] MEDS: HYDROCODONE/APAP 10/325 TAB PO PRN ×2 (03:57→10:06)
[2017-07-25 04:42] LABS: Magnesium 1.9 mg/dL (1.8-2.5); Potassium 3.7 mEq/L (3.6-5.0)
[2017-07-25 05:00] LABS: Absolute Lymphocytes (CBC) 2.7 K/uL (0.7-4.9); Absolute Monocytes 0.6 K/uL (0.1-1.3); Absolute Neutrophil 4.8 K/uL (1.8-8.0); Basophils % 0.9 % (0-1.3); Eosinophils % 3.1 % (0-4.4); Hematocrit 30.8 % (36.0-45.0); Lymphocytes % 32.6 % (15.3-44.8); MCH 28.5 pg (27.0-35.0); MCV 85.8 fL (80-100); MPV 7.7 fL (7.6-11.3); Monocytes % 6.9 % (3.3-12.3); RBC Red Blood Cell Count 3.59 M/uL (3.86-4.86)
[2017-07-25] MEDS: PIPER/TAZO/NS 3.375gm 3.375 GM/100 ML BAG IVPB SCH (05:25)
[2017-07-25] MEDS: INSULIN -REGULAR HUMAN 50 UNIT/0.5 ML ML SQ SCH (07:30)
--- NOTE | 2017-07-25 08:30 | P.DS ---
Admission Date: 07/23/17 Discharge Date: 07/25/17 Primary Care Provider: [facility] Disposition: ROUTINE DISCHARGE Discharge Condition: GOOD Reason for Admission: Right Toe Infection Consultations: Surgery-Dr. Bella Procedures: Surgery: Date of Procedure: 07/22/2017 Surgeon: Adelfo Bella MD Preoperative Diagnosis: Infected wound, right great toe with ingrown toenail. Postoperative Diagnosis: Infected wound, right great toe with ingrown toenail. Procedure: Incision, drainage and debridement of right toe infected wound and partial resection of the toe nail. Estimated Blood Loss: Minimal. Specimen: Nail and pus. Findings: As above. Anesthesia: General. Complications: None. - Problems (1) Anemia Current Visit: Yes Status: Chronic Qualifiers: Anemia type: iron deficiency Iron deficiency anemia type: inadequate dietary iron intake Qualified Code(s): D50.8 - Other iron deficiency anemias (2) Ingrown nail of great toe of right foot Current Visit: Yes Status: Acute (3) Wound infection Current Visit: Yes Status: Acute (4) Diabetes Current Visit: Yes Status: Chronic Qualifiers: Diabetes mellitus type: type 2 Diabetes mellitus long-term insulin use: without terminal worker use Diabetes mellitus complication status: with skin complications Diabetes mellitus complication detail: with other skin complication Qualified Code(s): E11.628 - Type 2 diabetes mellitus with other skin complications (5) HTN (hypertension) Current Visit: Yes Status: Chronic Qualifiers: Hypertension type: essential hypertension Qualified Code(s): I10 - Essential (primary) hypertension (6) Hyperlipidemia Current Visit: Yes Status: Chronic Qualifiers: Hyperlipidemia type: mixed hyperlipidemia Qualified Code(s): E78.2 - Mixed hyperlipidemia (7) Obesity Current Visit: Yes Status: Chronic Qualifiers: Obesity type: due to excess calories Obesity classification: adult class 1 (BMI 30 - 34.9) Serious obesity comorbidity presence: with serious comorbidity Body mass index: BMI 34.0-34.9 Qualified Code(s): E66.09 - Other obesity due to excess calories; Z68.34 - Body mass index (BMI) 34.0-34.9, adult Brief History of Present Illness: 67-year-old female presented emergency room with right great toe pain. Patient had an ingrown toenail. Patient accidentally had her cane step on her toe. Erythema, swelling noted. Patient came to the ER for further evaluation. Patient was found to have infected right great toe with ingrown toenail. The patient was admitted for treatment. Hospital Course: During the course of her stay. Patient was found to have an infected right great toe with ingrown toenail. Patient was evaluated by surgery. Surgery was required. Incision, drainage and debridement of right great toe was done. A partial resection of the toenail was also done. Patient tolerated procedure well. So far cultures are negative. Patient has done well postop. At discharge patient will continue with Bactrim DS 1 pill twice daily and doxycycline 100 mg 1 pill twice daily for 7 days. Patient takes chronic pain medication. She will continue with this as needed. Patient will continue with current wound care. Patient will need to clean wound with infectious open water. She may apply Bactroban ointment to the area daily. Recommendations for the patient to follow up with surgery in 1 week to follow up her care. Pathology and culture results pending at discharge. This can be followed up by surgery or her PCP. Patient has diabetes. Patient continue with her diabetic regimen-Levemir 14 units subcu every night and metformin 1000 mg 1 pill daily. Recommendation is to maintain blood sugars less 140 fasting and less than 2 after meals. Further adjustment can be done by her PCP. Patient has hypertension and hyperlipidemia. Patient will continue with her medication Norvasc/Lipitor 10/40 mg 1 pill daily. Lisinopril 10 mg 1 pill twice daily has been added for better hypertensive control. Recommendation is to maintain blood pressures less 150/80. Further adjustment can be done by her PCP. Patient has anemia. Lab indicates iron and B12 deficiency. Patient has been started on iron 325 mg 1 pill twice daily and B12 1000 mcg 1 pill daily. Recommendation is to recheck CBC, iron and B12 level in 2-4 weeks to monitor progress. Recommendation is for the patient to follow up with GI as an outpatient further assess her anemia. Patient may require colonoscopy in the near future if she has not had this done in the past. Patient may continue with aspirin 81 mg daily. Vital Signs/Physical Exam: Temp Pulse Resp BP Pulse Ox 96.7 F L 75 20 164/81 H 95 07/25/17 04:00 07/25/17 04:00 07/25/17 04:00 07/25/17 04:00 07/25/17 04:00 General: Alert, In no apparent distress, Oriented x3, Cooperative HEENT: Atraumatic, Mucous membr. moist/pink Neck: Supple, No Thyromegaly Respiratory: Clear to auscultation bilaterally, Normal air movement Cardiovascular: Normal pulses, Regular rate/rhythm Gastrointestinal: Normal bowel sounds, Soft and benign, Non-distended, No tenderness, No masses, No rebound, No guarding Musculoskeletal: No contractures, No erythema Integumentary: Other (Swelling and erythema to the right great toe significantly improved. Partial great toenail resection noted.) Neurological: Normal speech, Normal strength at 5/5 x4 extr, Normal tone, Normal affect Laboratory Data at Discharge: WBC 8.4 K/uL (4.3-10.9) 07/25/17 03:50 Hgb 10.2 g/dL (12.0-15.0) L 07/25/17 03:50 Hct 30.8 % (36.0-45.0) L 07/25/17 03:50 Plt Count 379 K/uL (152-406) 07/25/17 03:50 Sodium 138 mEq/L (135-145) 07/25/17 03:50 Potassium 3.7 mEq/L (3.6-5.0) 07/25/17 03:50 BUN 10 mg/dL (6-20) 07/25/17 03:50 Creatinine 0.80 mg/dL (0.44-1.00) 07/25/17 03:50 Glucose 119 mg/dL (65-120) 07/25/17 03:50 Phosphorus 3.6 mg/dL (2.5-4.3) 07/22/17 04:35 Magnesium 1.9 mg/dL (1.8-2.5) 07/25/17 03:50 Total Bilirubin 0.4 mg/dL (0.3-1.2) 07/24/17 06:23 AST 19 IU/L (10-42) 07/24/17 06:23 ALT 14 IU/L (10-60) 07/24/17 06:23 Alkaline Phosphatase 57 IU/L (42-121) 07/24/17 06:23 Home Medications: Amlodipine/Atorvastatin [Amlodipine-Atorvast 10-40 mg] 10 mg PO DAILY 02/19/16 Aspirin [Aspirin EC 81 MG] 81 mg PO DAILY 02/19/16 Carisoprodol 350 mg PO Q4H PRN 02/19/16 Hydrocodone Bit/Acetaminophen [[place] 10-325 Tablet] 1 each PO Q4H PRN 02/19/16 Amitriptyline [Elavil*] 10 mg PO BEDTIME #30 tab 02/20/16 Diphenhydramine [Benadryl*] 50 mg PO PRN 07/22/17 Insulin Detemir [Levemir] 14 units SQ BEDTIME 07/22/17 Metformin HCl 1,000 mg PO DAILY 07/22/17 Trazodone HCl 100 mg PO BEDTIME 07/22/17 Cyanocobalamin [Vitamin B-12*] 1,000 mcg PO DAILY #90 tab 07/25/17 Doxycycline Hyclate 100 mg PO BID #14 tablet 07/25/17 Ferrous Sulfate [Ferrous Sulfate*] 325 mg PO BID #60 tab 07/25/17 Lisinopril [Prinivil*] 10 mg PO BID #60 tab 07/25/17 Stefan/Bacit/Poly Oint [Neosporin Ointment*] 1 appl TOP BID #1 tube 07/25/17 Sulfamethoxazole/Trimethoprim [Bactrim Ds Tablet] 1 each PO BID #14 tablet 07/25 New Medications: Cyanocobalamin [Vitamin B-12*] 1,000 mcg PO DAILY #90 tab Doxycycline Hyclate 100 mg PO BID #14 tablet Ferrous Sulfate [Ferrous Sulfate*] 325 mg PO BID #60 tab Lisinopril [Prinivil*] 10 mg PO BID #60 tab Stefan/Bacit/Poly Oint [Neosporin Ointment*] 1 appl TOP BID #1 tube Sulfamethoxazole/Trimethoprim [Bactrim Ds Tablet] 1 each PO BID #14 tablet Patient Discharge Instructions: 1. Patient will need to follow up with her PCP in 1 week to follow up this hospitalization. 2. Patient presented with right great toe pain. Patient was found to have an infected right great toe with ingrown toenail. Patient was evaluated by surgery. Surgery was required. Incision, drainage and debridement of right great toe was done. A partial resection of the toenail was also done. Patient tolerated procedure well. So far cultures are negative. Patient has done well postop. At discharge patient will continue with Bactrim DS 1 pill twice daily and doxycycline 100 mg 1 pill twice daily for 7 days. Patient takes chronic pain medication. She will continue with this as needed. Patient will continue with current wound care. Patient will need to clean wound with infectious open water. She may apply Bactroban ointment to the area daily. Recommendations for the patient to follow up with surgery in 1 week to follow up her care. Pathology and culture results pending at discharge. This can be followed up by surgery or her PCP. 3. Patient has diabetes. Patient continue with her diabetic regimen-Levemir 14 units subcu every night and metformin 1000 mg 1 pill daily. Recommendation is to maintain blood sugars less 140 fasting and less than 2 after meals. Further adjustment can be done by her PCP. 4. Patient has hypertension and hyperlipidemia. Patient will continue with her medication Norvasc/Lipitor 10/ 40 mg 1 pill daily. Lisinopril 10 mg 1 pill twice daily has been added for better hypertensive control. Recommendation is to maintain blood pressures less 150/80. Further adjustment can be done by her PCP. 5. Patient has anemia. Lab indicates iron and B12 deficiency. Patient has been started on iron 325 mg 1 pill twice daily and B12 1000 mcg 1 pill daily. Recommendation is to recheck CBC, iron and B12 level in 2-4 weeks to monitor progress. Recommendation is for the patient to follow up with GI as an outpatient further assess her anemia. Patient may require colonoscopy in the near future if she has not had this done in the past. 6. Patient may continue with aspirin 81 mg daily. Diet: ADA Activity: Fall precautions Time spent managing pt's care (in minutes): 55
[2017-07-25] MEDS: BACI/NEOMYCIN/POLY OINT 15GM TOP SCH (09:00)
[2017-07-25] MEDS ORDERED: AMLODIPINE 10 MG TAB PO SCH (09:00)
[2017-07-25] MEDS ORDERED: POTASSIUM CL SA 10 MEQ TAB PO ONE (09:00)
[2017-07-25] MEDS: FERROUS SULFATE 325 MG TAB PO SCH (10:06)
[2017-07-25] MEDS: ASPIRIN EC 81 MG TAB PO SCH (10:08)
[2017-07-25] MEDS: CYANOCOBALAMIN 1,000 MCG TAB PO SCH (10:08)
[2017-07-25] MEDS: LISINOPRIL 10 MG TAB PO SCH (10:08)
[2017-07-25 10:10] VITALS: BP 164/79
[2017-07-25 10:45] VITALS: TEMP 98.6
[2017-07-25 12:08] LABS: A1c Component 0.95 mg/dL; Hemoglobin A1c 10.8 % (4-6.0)
== END 2017-07-25 12:10 | disposition home or self-care (01) | DRG 603 ==
LOC: ER 10:29 → ERHOLD 17:02 → 4TH 19:24 → 2ND 19:29 → 4TH 07-23 14:34 → OBSVTOIN 07-23 17:06
PROVIDERS: ADMIT Family Medicine; ATTEND Family Medicine
PROC: 0HBRXZZ Excision of Toe Nail, External Approach (ICD-10-PCS; 2017-07-22)
PROC: 0H9MXZZ Drainage of Right Foot Skin, External Approach (ICD-10-PCS; principal; 2017-07-22 12:45)
DX: L08.9 Local infection of the skin and subcutaneous tissue, unspecified (principal); L60.0 Ingrowing nail; E11.9 Type 2 diabetes mellitus without complications; I10 Essential (primary) hypertension; E78.5 Hyperlipidemia, unspecified; E66.9 Obesity, unspecified; Z68.34 Body mass index [BMI] 34.0-34.9, adult; D50.9 Iron deficiency anemia, unspecified; Z95.2 Presence of prosthetic heart valve; Z23 Encounter for immunization
CPT/HCPCS: 36415; 80048; 80053; 80202; 81003; 82607; 82728; 82962; 83036; 83540; 83735; 84100; 84145; 84443; 84466; 85025; 86140; 87040; 87070; 87075; 87077; 87186; 87205; 88304; 88305; 90670; 96365; 96366; 96368; 96375; 97163; 99285; G0009; G0378; J1650; J2250; J2405; J2543; J3370; J3475; J7030

== ENCOUNTER 2018-06-10 13:45 | Emergency (ER) | payer OTHER ==
[2018-06-10] MEDS ORDERED: FENTANYL CITR 100 MCG/2 ML ONE ×2 (14:43→15:38)
[2018-06-10] MEDS ORDERED: ONDANSETRON 4 MG/2 ML VIAL ONE (14:43)
[2018-06-10 14:59] LABS: Absolute Lymphocytes (CBC) 1.7 K/uL (0.7-4.9); Absolute Monocytes 0.5 K/uL (0.1-1.3); Absolute Neutrophil 6.4 K/uL (1.8-8.0); Basophils % 0.5 % (0-1.3); Eosinophils % 2.6 % (0-4.4); Hematocrit 29.2 % (36.0-45.0); Lymphocytes % 19.2 % (15.3-44.8); Monocytes % 5.8 % (3.3-12.3)
[2018-06-10 15:06] LABS: Protime INR 0.92
--- NOTE | 2018-06-10 15:11 | RAD REPORT ---
EXAM DESCRIPTION: Gordon Single View06/10/2018 2:33 pm CLINICAL HISTORY: cough COMPARISON: 2016 FINDINGS: The lungs appear clear of acute infiltrate. The heart is mildly enlarged. Postsurgical changes involve the chest. IMPRESSION: No acute abnormalities displayed
[2018-06-10] MEDS ORDERED: NA CHLORIDE 0.9% 1,000 ML ONE (15:39)
[2018-06-10] MEDS ORDERED: NA CHLORIDE 0.9% 500 ML ONE (15:39)
[2018-06-10 15:47] LABS: ALT/SGPT 13 U/L (12-78); AST/SGOT 10 U/L (15-37); Albumin 3.5 g/dL (3.4-5.0); Alkaline Phosphatase 89 U/L (45-117); BUN Blood Urea Nitrogen 15 mg/dL (7-18); Bicarbonate 24 mmol/L (21-32); Bilirubin Direct < 0.1 mg/dL (0-0.2); Bilirubin Total 0.2 mg/dL (0.2-1.0); Glucose Level 122 mg/dL (74-106); Lipase 83 U/L (73-393); Magnesium 2.1 mg/dL (1.8-2.4); NT PRO-BNP 160 pg/mL (<125); Potassium 4.5 mmol/L (3.5-5.1); Protein, Total 7.8 g/dL (6.4-8.2); Sodium Level 139 mmol/L (136-145); Troponin (Emerg Dept Use Only) < 0.02 ng/mL (0.0-0.045)
--- NOTE | 2018-06-10 16:40 | RAD REPORT ---
EXAM DESCRIPTION: CT - Chest Abdomen Pelvis W Cont - 06/10/2018 4:24 pm CLINICAL HISTORY: Chest and abdominal pain COMPARISON: [address] TECHNIQUE: Computed axial tomography of the chest, abdomen and pelvis was obtained. 100 cc Isovue-30 0 was administered intravenously. Oral contrast was not requested. This limits evaluation of bowel. All CT scans are performed using dose optimization technique as appropriate and may include automated exposure control or mA/KV adjustment according to patient size. FINDINGS: A few areas of scarring are present within the lungs. A pleural effusion is not present. A pericardial effusion is not seen. Subcentimeter mediastinal and hilar lymph nodes likely not significant. The liver, spleen, pancreas, adrenals and kidneys appear unremarkable. There is no evidence of diverticulitis. A hysterectomy has been performed. IMPRESSION: No acute abnormality splayed
[2018-06-10] MEDS ORDERED: KETOROLAC 30 MG/ML INJ ONE (17:08)
--- NOTE | 2018-06-10 19:35 | EDPHYS ---
Physician Documentation [facility] Name: Mariah Jones Age: 68 yrs Sex: Female : 1950 Arrival Date: 06/10/2018 Time: 13:46 Bed 24 Private MD: None, None ED Physician Armani Atkinson HPI: 06/10 14:25 This 68 yrs old Female presents to ER via Ambulatory with complaints of Back cp Pain, Chest Pain. 14:25 The patient presents with pain that is acute, with no known mechanism of injury. The cp symptoms are located in the mid back. Onset: The symptoms/episode began/occurred 1 week(s) ago. The pain radiates to the chest and upper abdomen. 14:25 Associated signs and symptoms: Pertinent positives: cough, Pertinent negatives: cp dysuria, fever, incontinence, vomiting, weakness. 14:25 Severity of symptoms: in the emergency department the symptoms are unchanged, despite cp home interventions. Historical: - Allergies: 13:57 GABAPENTIN; la1 - PMHx: 13:57 Diabetes - NIDDM; aortic valve replacement; Hypertension; la1 - Immunization history:: Adult Immunizations up to date. - Social history:: Smoking status: Patient/guardian denies using tobacco. - Ebola Screening: : No symptoms or risks identified at this time. ROS: 14:30 Constitutional: Negative for body aches, chills, fever, poor PO intake. cp 14:30 Eyes: Negative for injury, pain, redness, and discharge. cp 14:30 Cardiovascular: Positive for chest pain. cp 14:30 ENT: Negative for drainage from ear(s), ear pain, sore throat, difficulty swallowing, cp difficulty handling secretions. 14:30 Respiratory: Positive for cough, with no reported sputum, Negative for shortness of breath, wheezing. 14:30 Abdomen/GI: Positive for abdominal pain, Negative for vomiting, diarrhea, constipation, black/tarry stool, rectal bleeding. 14:30 Back: Positive for pain at rest, pain with movement, of the mid back. 14:30 : Negative for urinary symptoms, flank pain. 14:30 Skin: Negative for cellulitis, rash. 14:30 Neuro: Negative for altered mental status, dizziness, headache, syncope, weakness. 14:30 All other systems are negative. Exam: 14:20 ECG was reviewed by the Attending Physician. cp 14:35 Constitutional: The patient appears in no acute distress, alert, awake, cp non-diaphoretic, non-toxic, well developed, well nourished, obese. 14:35 Head/Face: Normocephalic, atraumatic. cp 14:35 Eyes: Periorbital structures: appear normal, Conjunctiva: normal, no exudate, no injection, Sclera: no appreciated abnormality, Lids and lashes: appear normal, bilaterally. 14:35 ENT: External ear(s): are unremarkable, Ear canal(s): are normal, clear, TM's: bulging, is not appreciated, bilaterally, dullness, bilaterally, erythema, is not appreciated, bilaterally, Nose: is normal, Mouth: Lips: moist, Oral mucosa: pink and intact, moist, Posterior pharynx: Airway: no evidence of obstruction, patent, Tonsils: are normal in appearance, Uvula: midline. 14:35 Neck: ROM/movement: is normal, is supple, without pain, no range of motions limitations, no nuchal rigidity. 14:35 Chest/axilla: Inspection: normal, Palpation: crepitus, is not appreciated, tenderness, that is moderate, of the bilateral lower rib area, that partially reproduces the patient's complaints. 14:35 Cardiovascular: Rate: normal, Rhythm: regular, Heart sounds: murmur, not appreciated, rub, not appreciated, gallop, not appreciated, Edema: is not appreciated, JVD: is not appreciated. 14:35 Respiratory: the patient does not display signs of respiratory distress, Respirations: normal, no use of accessory muscles, no retractions, no splinting, no tachypnea, labored breathing, is not present, Breath sounds: are clear throughout, no decreased breath sounds, no stridor, no wheezing. 14:35 Abdomen/GI: Inspection: obese Bowel sounds: active, all quadrants, Palpation: soft, in all quadrants, moderate abdominal tenderness, in the bilateral upper abdomen, rebound tenderness, is not appreciated, involuntary guarding, is not appreciated. 14:35 Back: pain, of the mid back area, ROM is normal. 14:35 Skin: cellulitis, is not appreciated, no rash present. 14:35 Neuro: Orientation: to person, place \T\ time. Mentation: is normal, Cerebellar function: is grossly normal, Motor: moves all fours, strength is normal, Sensation: is normal. 18:26 ECG was reviewed by the Attending Physician. cp Vital Signs: 13:57 BP 143 / 80; Pulse 85; Resp 16; Temp 98.7; Pulse Ox 98% on R/A; Weight 84.37 kg; Height la1 5 ft. 2 in. (157.48 cm); Pain 8/10; 14:30 BP 137 / 62; Pulse 80; Resp 19 S; Pulse Ox 99% on R/A; ca1 15:30 BP 130 / 68; Pulse 79; Resp 18 S; Pulse Ox 98% on R/A; ca1 16:00 BP 126 / 58; Pulse 78; Resp 16 S; Pulse Ox 100% on R/A; ca1 17:00 BP 131 / 76; Pulse 88; Resp 17 S; Pulse Ox 98% on R/A; ca1 18:00 BP 136 / 65; Pulse 89; Resp 18 S; Pulse Ox 100% on R/A; ca1 19:00 BP 132 / 61; Pulse 92; Resp 20 S; Pulse Ox 99% on R/A; ca1 19:35 BP 134 / 61; Pulse 89; Resp 17 S; Pulse Ox 99% on R/A; ca1 13:57 Body Mass Index 34.02 (84.37 kg, 157.48 cm) la1 MDM: 14:00 Patient medically screened. cp 19:33 Data reviewed: vital signs, nurses notes, lab test result(s), EKG, radiologic studies, cp CT scan, plain films. 19:33 Differential diagnosis: Pyelonephritis acute MN, rib fracture, pulmonary embolism. Test cp interpretation: by ED physician or midlevel provider: ECG, plain radiologic studies. Counseling: I had a detailed discussion with the patient and/or guardian regarding: the historical points, exam findings, and any diagnostic results supporting the discharge/admit diagnosis, lab results, radiology results, the need for outpatient follow up, a family practitioner, to return to the emergency department if symptoms worsen or persist or if there are any questions or concerns that arise at home. Response to treatment: the patient's symptoms have markedly improved after treatment, and as a result, I will discharge patient. Special discussion: Based on the patient's history, exam, and Dx evaluation, there is no indication for emergent intervention or inpatient Tx. It is understood by the patient/guardian that if the Sx's persist or worsen they need to return immediately for re-evaluation. Based on the patient's Hx, exam, and Dx evaluation, there is no indication for emergent surgery or inpatient Tx. It is understood by the patient/guardian that if the Sx's persist or worsen they need to return immediately for re-evaluation. ED course: VSS. Labs and radiology studies negative for acute findings. Will discharge to home for continued monitoring . 06/10 14:26 Order name: Basic Metabolic Panel 06/10 14:26 Order name: CBC with Diff; Complete Time: 15:18 cp 06/10 15:18 Interpretation: Normal except: RBC 3.30; HGB 9.7; HCT 29.2; MPV 7.0. cp 06/10 14:26 Order name: LFT's; Complete Time: 16:46 cp 06/10 16:46 Interpretation: Normal except: AST 10; GLOB 4.3; A/G 0.8. cp 06/10 14:26 Order name: Magnesium; Complete Time: 16:46 cp 06/10 14:26 Order name: NT PRO-BNP; Complete Time: 16:46 cp 06/10 16:47 Interpretation: Abnormal: NT PRO-BNP 160. cp 06/10 14:26 Order name: PT-INR; Complete Time: 15:18 cp 06/10 14:26 Order name: Troponin (emerg Dept Use Only); Complete Time: 16:46 cp 06/10 16:48 Interpretation: TROPED < 0.02; Reviewed. cp 06/10 14:26 Order name: XRAY Chest (1 view); Complete Time: 15:18 cp 06/10 14:26 Order name: Lipase; Complete Time: 16:46 cp 06/10 16:47 Interpretation: Reviewed. cp 06/10 14:27 Order name: Basic Metabolic Panel; Complete Time: 16:46 EDMS 06/10 16:48 Interpretation: Normal except: GLUC 122; GFR 49; CA 8.4. cp 06/10 16:14 Order name: Chest Abdomen Pelvis W Cont; Complete Time: 16:46 EDMS 06/10 16:47 Interpretation: Report reviewed. cp 06/10 17:55 Order name: Troponin I; Complete Time: 19:17 cp 04/13 14:19 Order name: EKG; Complete Time: 14:19 ca1 06/10 14:19 Order name: EKG - Nurse/Tech; Complete Time: 14:20 ca1 06/10 14:26 Order name: Cardiac monitoring; Complete Time: 14:29 cp 06/10 14:26 Order name: IV Saline Lock; Complete Time: 14:58 cp 06/10 14:26 Order name: Labs collected and sent; Complete Time: 14:58 cp 06/10 14:26 Order name: O2 Per Protocol; Complete Time: 14:29 cp 06/10 14:26 Order name: O2 Sat Monitoring; Complete Time: 14:29 cp 06/10 17:55 Order name: EKG; Complete Time: 17:56 cp 06/10 17:55 Order name: EKG - Nurse/Tech; Complete Time: 18:28 cp EC:20 Rate is 79 beats/min. Rhythm is regular. TX interval is normal. QRS interval is cp prolonged at 138 msec. QT interval is normal. T waves are Inverted in lead aVL. Interpreted by me. Reviewed by me. 18:26 Rate is 85 beats/min. Rhythm is regular. TX interval is normal. QRS interval is cp prolonged at 136 msec. QT interval is normal. T waves are Inverted in lead aVL. Interpreted by me. Reviewed by me. Administered Medications: 14:50 Drug: Zofran 4 mg Route: IVP; Site: right antecubital; ca1 15:39 Follow up: Response: No adverse reaction; Nausea is decreased ca1 14:52 Drug: fentaNYL (PF) 25 mcg Route: IVP; Site: right antecubital; ca1 15:39 Follow up: Response: No adverse reaction; Pain is unchanged, physician notified ca1 15:25 Drug: fentaNYL (PF) 25 mcg Route: IVP; Site: right antecubital; ca1 16:57 Follow up: Response: No adverse reaction; Pain is decreased ca1 15:26 Drug: NS 0.9% 1000 ml Route: IV; Rate: 125 ml/hr; Site: right antecubital; ca1 19:45 Follow up: Response: No adverse reaction; IV Status: Order to discontinue infusion ca1 15:26 Drug: NS 0.9% 500 ml Route: IV; Rate: bolus; Site: right antecubital; ca1 16:57 Follow up: Response: No adverse reaction; IV Status: Completed infusion ca1 16:57 Drug: TORadol 30 mg Route: IVP; Site: right antecubital; ca1 18:28 Follow up: Response: No adverse reaction; Pain is decreased ca1 Disposition: 06/10/18 19:34 Discharged to Home. Impression: Other chest pain, Back pain. - Condition is Stable. - Discharge Instructions: Nonspecific Chest Pain, Musculoskeletal Pain, Aspirin and Your Heart. - Prescriptions for Cyclobenzaprine 10 mg Oral Tablet - take 1 tablet by ORAL route every 8 hours As needed; 20 tablet. Naprosyn 375 mg Oral Tablet - take 1 tablet by ORAL route 2 times per day take with food; 20 tablet. Tramadol 50 mg Oral Tablet - take 1 tablet by ORAL route every 8 hours as needed; 12 tablet. - Medication Reconciliation Form, Thank You Letter, Antibiotic Education, Prescription Opioid Use form. - Follow up: Private Physician; When: 2 - 3 days; Reason: Recheck today's complaints. - Problem is new. - Symptoms have improved. Addendum: 06/12/2018 08:09 Co-signature as Attending Physician, Armani Atkinson MD Available for consultation at p s1 all times. . Signatures: Dispatcher [employer] EDSC Fuad Jacob RN RN la1 Jonah Mcwilliams PA PA cp Armani Atkinson MD MD ps1 Reyna Harvey RN RN ca1 Corrections: (The following items were deleted from the chart) 06/10 16:14 15:21 Abdomen Pelvis W Con+CT.RAD.BRZ ordered. EDSC EDMS 16:48 16:46 Normal except: GLUC 122; GFR 49. cp cp 19:45 19:34 06/10/2018 19:34 Discharged to Home. Impression: Other chest pain. Condition is cp Stable. Forms are Medication Reconciliation Form, Thank You Letter, Antibiotic Education, Prescription Opioid Use. Follow up: Private Physician; When: 2 - 3 days; Reason: Recheck today's complaints. Problem is new. Symptoms have improved. cp 19:54 19:45 06/10/2018 19:34 Discharged to Home. Impression: Other chest pain; Back pain. ca1 Condition is Stable. Forms are Medication Reconciliation Form, Thank You Letter, Antibiotic Education, Prescription Opioid Use. Follow up: Private Physician; When: 2 - 3 days; Reason: Recheck today's complaints. Problem is new. Symptoms have improved. cp
--- NOTE | 2018-06-10 19:35 | ER ---
Nurse's Notes [facility] Name: Mariah Jones Age: 68 yrs Sex: Female : 1950 Arrival Date: 06/10/2018 Time: 13:46 Bed 24 Private MD: None, None Diagnosis: Other chest pain;Back pain Presentation: 06/10 13:55 Presenting complaint: Patient states: I am having a burning/sharp pain in between my la1 shoulder blades that radiates all the way around both sides of my chest. Pain started one week prior. Transition of care: patient was not received from another setting of care. Onset of symptoms was June 10, 2018. Risk Assessment: Do you want to hurt yourself or someone else? Patient reports no desire to harm self or others. Initial Sepsis Screen: Does the patient meet any 2 criteria? No. Patient's initial sepsis screen is negative. Does the patient have a suspected source of infection? No. Patient's initial sepsis screen is negative. Care prior to arrival: None. 13:55 Method Of Arrival: Ambulatory la1 13:55 Acuity: AMEE 3 la1 Historical: - Allergies: 13:57 GABAPENTIN; la1 - PMHx: 13:57 Diabetes - NIDDM; aortic valve replacement; Hypertension; la1 - Immunization history:: Adult Immunizations up to date. - Social history:: Smoking status: Patient/guardian denies using tobacco. - Ebola Screening: : No symptoms or risks identified at this time. Screenin:00 Abuse screen: Denies threats or abuse. Denies injuries from another. Nutritional ca1 screening: No deficits noted. Tuberculosis screening: No symptoms or risk factors identified. Fall Risk Ambulatory Aid- Crutches/Cane/Walker (15 pts). Assessment: 14:00 General: Appears in no apparent distress. comfortable, Behavior is calm, cooperative, ca1 appropriate for age. Pain: Complains of pain in left mid back and right mid back Pain radiates to right breast and left breast Pain currently is 8 out of 10 on a pain scale. Quality of pain is described as burning, sharp, Pain began a week ago. Neuro: Level of Consciousness is awake, alert, obeys commands, Oriented to person, place, time, situation. Cardiovascular: Heart tones S1 S2 present Capillary refill < 3 seconds Patient's skin is warm and dry. Respiratory: Airway is patent Respiratory effort is even, unlabored, Respiratory pattern is regular, symmetrical, Breath sounds are clear bilaterally. GI: Abdomen is round non-distended, Bowel sounds present X 4 quads. Abd is soft and non tender X 4 quads. : No deficits noted. No signs and/or symptoms were reported regarding the genitourinary system. EENT: No deficits noted. No signs and/or symptoms were reported regarding the EENT system. Derm: Skin is intact, is healthy with good turgor, Skin is pink, warm \T\ dry. Musculoskeletal: Circulation, motion, and sensation intact. Capillary refill < 3 seconds. 15:00 Reassessment: Patient appears in no apparent distress at this time. Patient and/or ca1 family updated on plan of care and expected duration. Pain level reassessed. Patient is alert, oriented x 3, equal unlabored respirations, skin warm/dry/pink. 16:00 Reassessment: Patient appears in no apparent distress at this time. Patient is alert, ca1 oriented x 3, equal unlabored respirations, skin warm/dry/pink. Patient states feeling better. 17:00 Reassessment: Patient appears in no apparent distress at this time. Patient and/or ca1 family updated on plan of care and expected duration. Pain level reassessed. Patient is alert, oriented x 3, equal unlabored respirations, skin warm/dry/pink. 18:00 Reassessment: Patient appears in no apparent distress at this time. Patient and/or ca1 family updated on plan of care and expected duration. Pain level reassessed. Patient is alert, oriented x 3, equal unlabored respirations, skin warm/dry/pink. 18:52 Reassessment: Patient appears in no apparent distress at this time. Patient is alert, ca1 oriented x 3, equal unlabored respirations, skin warm/dry/pink. 19:35 Reassessment: Patient appears in no apparent distress at this time. Patient is alert, ca1 oriented x 3, equal unlabored respirations, skin warm/dry/pink. LACI Lamb at bedside. Vital Signs: 13:57 BP 143 / 80; Pulse 85; Resp 16; Temp 98.7; Pulse Ox 98% on R/A; Weight 84.37 kg; Height la1 5 ft. 2 in. (157.48 cm); Pain 8/10; 14:30 BP 137 / 62; Pulse 80; Resp 19 S; Pulse Ox 99% on R/A; ca1 15:30 BP 130 / 68; Pulse 79; Resp 18 S; Pulse Ox 98% on R/A; ca1 16:00 BP 126 / 58; Pulse 78; Resp 16 S; Pulse Ox 100% on R/A; ca1 17:00 BP 131 / 76; Pulse 88; Resp 17 S; Pulse Ox 98% on R/A; ca1 18:00 BP 136 / 65; Pulse 89; Resp 18 S; Pulse Ox 100% on R/A; ca1 19:00 BP 132 / 61; Pulse 92; Resp 20 S; Pulse Ox 99% on R/A; ca1 19:35 BP 134 / 61; Pulse 89; Resp 17 S; Pulse Ox 99% on R/A; ca1 13:57 Body Mass Index 34.02 (84.37 kg, 157.48 cm) la1 ED Course: 13:46 Patient arrived in ED. mr 13:46 None, None is Private Physician. mr 13:56 Triage completed. la1 13:57 Arm band placed on left wrist. la1 14:00 Jonah Mcwilliams PA is PHCP. cp 14:00 Armani Atkinson MD is Attending Physician. cp 14:00 Patient has correct armband on for positive identification. Placed in gown. Bed in low ca1 position. Call light in reach. Side rails up X 1. quality assurance monitor body on. Pulse ox on. NIBP on. Warm blanket given. 14:02 Reyna Harvey, RN is Primary Nurse. ca1 14:34 XRAY Chest (1 view) In Process Unspecified. EDMS 14:50 Initial lab(s) drawn, by me, sent to lab. EKG done, by ED staff, reviewed by Jonah Mcwilliams jp3 PA. 14:53 Inserted saline lock: 22 gauge in right antecubital area, using aseptic technique. jp3 Blood collected. 15:10 Basic Metabolic Panel Sent. jp3 15:45 Radiology exam delayed due to lab results not completed at this time. (BUN/Creatinine). vm2 16:[address] vm2 16:24 Chest Abdomen Pelvis W Cont In Process Unspecified. EDMS 16:24 CT completed. Patient tolerated procedure well. Note: PT REMINDED NOT TO TAKE HER vm2 METFORMIN FOR 48HRS POST CT W/CONTRAST. Patient moved back from CT. 19:43 No provider procedures requiring assistance completed. IV discontinued, intact, ca1 bleeding controlled, No redness/swelling at site. Pressure dressing applied. Administered Medications: 14:50 Drug: Zofran 4 mg Route: IVP; Site: right antecubital; ca1 15:39 Follow up: Response: No adverse reaction; Nausea is decreased ca1 14:52 Drug: fentaNYL (PF) 25 mcg Route: IVP; Site: right antecubital; ca1 15:39 Follow up: Response: No adverse reaction; Pain is unchanged, physician notified ca1 15:25 Drug: fentaNYL (PF) 25 mcg Route: IVP; Site: right antecubital; ca1 16:57 Follow up: Response: No adverse reaction; Pain is decreased ca1 15:26 Drug: NS 0.9% 1000 ml Route: IV; Rate: 125 ml/hr; Site: right antecubital; ca1 19:45 Follow up: Response: No adverse reaction; IV Status: Order to discontinue infusion ca1 15:26 Drug: NS 0.9% 500 ml Route: IV; Rate: bolus; Site: right antecubital; ca1 16:57 Follow up: Response: No adverse reaction; IV Status: Completed infusion ca1 16:57 Drug: TORadol 30 mg Route: IVP; Site: right antecubital; ca1 18:28 Follow up: Response: No adverse reaction; Pain is decreased ca1 Outcome: 19:34 Discharge ordered by MD. cp 19:43 Discharged to home via wheelchair, with family, sister ca1 19:43 Condition: stable 19:43 Discharge instructions given to patient, Instructed on discharge instructions, follow up and referral plans. Demonstrated understanding of instructions, follow-up care. 19:54 Patient left the ED. ca1 Signatures: Dispatcher [employer] EDMS Cee Patterson Fuad Renae, RN RN la1 Jonah Mcwilliams PA PA cp McGuire, Victoria 2 Guille Jenkins jp3 Reyna Harvey RN RN ca1 Corrections: (The following items were deleted from the chart) 13:58 13:55 Presenting complaint: Patient states: I am having a burning/sharp pain in between la1 my shoulder blades that radiates all the way around both sides of my chest. la1 14:06 14:00 Fall Risk None identified. ca1 ca1
[2018-06-10 21:06] VITALS: TEMP 98.7
[2018-06-10 21:13] VITALS: O2SAT 99
[2018-06-10 21:14] VITALS: BP 134/61
--- NOTE | 2018-06-12 05:55 | EKG ---
Test Date: 2018-06-10 Test Time: 18:15:24 [employer] Support Specialist: MENA MEASUREMENT RESULTS: Intervals: Rate: 85 VA: 176 QRSD: 136 QT: 404 QTc: 480 [place]: P: 52 VA: 176 QRS: -5 T: 84 INTERPRETIVE STATEMENTS: Normal sinus rhythm Possible Left atrial enlargement Left bundle branch block Abnormal ECG Compared to ECG 06/10/2018 14:13:36 No significant changes Electronically Signed On 06-12-18 05:54:21 CDT by Fausto Barron
--- NOTE | 2018-06-12 05:56 | EKG ---
Test Date: 2018-06-10 Test Time: 14:13:36 Profile Saw Setup Operator: MENA MEASUREMENT RESULTS: Intervals: Rate: 79 MD: 176 QRSD: 138 QT: 414 QTc: 474 [place]: P: 51 MD: 176 QRS: 4 T: 89 INTERPRETIVE STATEMENTS: Normal sinus rhythm Possible Left atrial enlargement Left bundle branch block Abnormal ECG Compared to ECG 02/20/2016 06:55:01 No significant changes Electronically Signed On 06-12-18 05:55:26 CDT by Fausto Barron
== END 2018-06-10 19:54 | disposition home or self-care (01) ==
LOC: ER 13:45
DX: M54.9 Dorsalgia, unspecified (principal); R07.89 Other chest pain; I44.7 Left bundle-branch block, unspecified; R94.31 Abnormal electrocardiogram [ECG] [EKG]
CPT/HCPCS: 96361; 93005 ×2; 85025; 80048; 36415; 83735; 85610; 80076; 84484 ×2; 83690; 83880; 71260; 74177; 71045; 96375; 96374; 99285; Q9967; J3010 ×2; J7030; J2405

== ENCOUNTER 2018-11-25 11:25 | Emergency (ER) | payer OTHER ==
[2018-11-25] MEDS ORDERED: FENTANYL CITR 100 MCG/2 ML ONE (13:02)
[2018-11-25] MEDS ORDERED: NA CHLORIDE 0.9% 500 ML ONE (13:02)
[2018-11-25 13:45] LABS: Potassium 4.7 mmol/L (3.5-5.1)
[2018-11-25 14:09] LABS: Absolute Lymphocytes (CBC) 1.9 K/uL (0.7-4.9); Basophils % 0.4 % (0-1.3); Hematocrit 28.2 % (36.0-45.0); Lymphocytes % 14.6 % (15.3-44.8); MPV 8.5 fL (7.6-11.3); RBC Red Blood Cell Count 3.28 M/uL (3.86-4.86)
--- NOTE | 2018-11-25 14:56 | RAD REPORT ---
EXAM DESCRIPTION: CT - Chest Abdomen Pelvis W Cont - 11/25/2018 2:41 pm CLINICAL HISTORY: Chest and abdominal pain status post fall COMPARISON: CT May 2018 TECHNIQUE: Computed axial tomography of the chest, abdomen and pelvis was obtained. 100 cc Isovue-30 0 was administered intravenously. Oral contrast was not requested. This limits evaluation of bowel. All CT scans are performed using dose optimization technique as appropriate and may include automated exposure control or mA/KV adjustment according to patient size. FINDINGS: A pleural effusion is not present. A pulmonary contusion is not seen. A mediastinal hematoma is not present. The liver, spleen, pancreas, adrenals and kidneys appear unremarkable. The bladder appears grossly normal. No ascites is seen. IMPRESSION: No traumatic injury involving the chest, abdomen nor pelvis is seen.
[2018-11-25] MEDS ORDERED: CYCLOBENZAPRINE 10 MG TAB ONE (15:16)
[2018-11-25] MEDS ORDERED: KETOROLAC 30 MG/ML INJ ONE (15:16)
--- NOTE | 2018-11-25 15:22 | ER ---
Nurse's Notes [facility] Name: Mariah Jones Age: 68 yrs Sex: Female : 1950 Arrival Date: 11/25/2018 Time: 11:29 Bed 24 Private MD: Maurisio Sousa E Diagnosis: Fall on same level from slipping, tripping and stumbling;Other chest pain-left lateral chest Presentation: 11/25 11:39 Presenting complaint: Patient states: "I slipped yesterday because of the rain and fell aa5 onto my left side". pt c/o pain to left lateral aspect of lower rib cage. Pt denies head injury, denies LOC. Transition of care: patient was not received from another setting of care. Onset of symptoms was November 24, 2018. Risk Assessment: Do you want to hurt yourself or someone else? Patient reports no desire to harm self or others. Initial Sepsis Screen: Does the patient meet any 2 criteria? No. Patient's initial sepsis screen is negative. Does the patient have a suspected source of infection? No. Patient's initial sepsis screen is negative. Care prior to arrival: None. 11:39 Acuity: AMEE 4 aa5 11:39 Method Of Arrival: Wheelchair aa5 12:43 Mechanism of Injury: Fall. Trauma event details: Injury occurred: November 24, 2018. mg2 Triage Assessment: 12:44 General: Appears in no apparent distress. uncomfortable, Behavior is calm, cooperative. mg2 Trauma Activation: Not Applicable Physician: ED Physician; Name: ; Notified At: ; Arrived At: Physician: General Surgeon; Name: ; Notified At: ; Arrived At: Physician: Radiology; Name: ; Notified At: ; Arrived At: Physician: Respiratory; Name: ; Notified At: ; Arrived At: Physician: Lab; Name: ; Notified At: ; Arrived At: Historical: - Allergies: 11:44 GABAPENTIN; aa5 - Home Meds: 11:44 amlodipine oral [Active]; glimepiride Oral [Active]; Metformin Oral [Active]; Lyrica aa5 Oral [Active]; atorvastatin oral oral [Active]; Aspirin Oral [Active]; metoprolol [Active]; - PMHx: 11:44 Diabetes - NIDDM; Hypertension; Hyperlipidemia; aa5 - PSHx: 11:44 Aortic Valve Replacement; aa5 - Immunization history:: Flu vaccine is up to date. Pneumococcal vaccine is up to date. - Social history:: Smoking status: Patient/guardian denies using tobacco. - Immunization history: Last tetanus immunization: unknown. - Ebola Screening: : No symptoms or risks identified at this time. Screenin:41 Abuse screen: Denies threats or abuse. Denies injuries from another. Nutritional mg2 screening: No deficits noted. Tuberculosis screening: No symptoms or risk factors identified. 12:44 Fall Risk Fall in past 12 months (25 points). mg2 Primary Survey: 12:39 NO uncontrolled hemorrhage observed. A: The patient is alert. Airway: patent. mg2 Breathing/Chest: Respiratory pattern: regular, Respiratory effort: spontaneous, unlabored, Breath sounds: clear. Circulation: Skin color: pink. Disability Alert. Exposure/Environment: All clothing and personal items were removed. Forensic evidence collection is not deemed to be indicated at this time. Items placed in patient belonging bag. There is no evidence of uncontrolled external bleeding. No obvious injuries are noted at this time. A warming method has been applied: A warm blanket has been provided to the patient. 13:47 Reassessment Airway Airway Patent Breathing/Chest Respiratory pattern Regular mg2 Respiratory effort Spontaneous Unlabored Breath sounds Clear Chest inspection Symmetrical Circulation Color Biehle Disability Alert. Secondary Survey: 12:40 HEENT: No deficits noted. Gastrointestinal: No deficits noted. : No deficits noted. mg2 Musculoskeletal: Circulation, motion, and sensation intact. Capillary refill < 3 seconds, Reports pain in left side of the trunk down to the left hip since last night. Assessment: 12:42 Reassessment: see triage assessment. mg2 15:00 Reassessment: Patient appears in no apparent distress at this time. Patient and/or mg2 family updated on plan of care and expected duration. Pain level reassessed. Patient is alert, oriented x 3, equal unlabored respirations, skin warm/dry/pink. Patient states feeling better. Vital Signs: 11:44 BP 118 / 57; Pulse 67; Resp 16 S; Temp 98.8(O); Pulse Ox 99% on R/A; Weight 88 kg (R); aa5 Height 5 ft. 2 in. (157.48 cm) (R); Pain 10/10; 13:47 BP 100 / 53; Pulse 70; Resp 18; Pulse Ox 100% on R/A; mg2 15:27 BP 114 / 76; Pulse 74; Resp 18; Temp 98; Pulse Ox 100% on R/A; mg2 11:44 Body Mass Index 35.48 (88.00 kg, 157.48 cm) aa5 Stringer Coma Score: 12:42 Eye Response: spontaneous(4). Verbal Response: oriented(5). Motor Response: obeys mg2 commands(6). Total: 15. 15:27 Eye Response: spontaneous(4). Verbal Response: oriented(5). Motor Response: obeys mg2 commands(6). Total: 15. Trauma Score (Adult): 12:42 Eye Response: spontaneous(1); Verbal Response: oriented(1); Motor Response: obeys mg2 commands(2); Systolic BP: > 89 mm Hg(4); Respiratory Rate: 10 to 29 per min(4); Stringer Score: 15; Trauma Score: 12 15:27 Eye Response: spontaneous(1); Verbal Response: oriented(1); Motor Response: obeys mg2 commands(2); Systolic BP: > 89 mm Hg(4); Respiratory Rate: 10 to 29 per min(4); Stringer Score: 15; Trauma Score: 12 ED Course: 11:29 Patient arrived in ED. mr 11:29 None, None is Private Physician. mr 11:29 Maurisio Sousa MD is Private Physician. mr 11:39 Arm band placed on. aa5 11:40 Triage completed. aa5 12:08 Jamie Patrick, ALEXANDRO is Primary Nurse. mg2 12:36 Jonah Mcwilliams PA is PHCP. cp 12:36 Jonah Kent MD is Attending Physician. cp 12:42 No provider procedures requiring assistance completed. mg2 12:43 Patient has correct armband on for positive identification. mg2 12:43 Patient maintains SpO2 saturation greater than 95% on room air. Thermoregulation: warm mg2 blanket given to patient. 12:58 Radiology exam delayed due to lab results not completed at this time. (BUN/Creatinine). mw3 13:05 Inserted saline lock: 22 gauge in left antecubital area, using aseptic technique. Blood jp3 collected. 13:05 Initial lab(s) drawn, by me, sent to lab. T\\T\\S collected, blood band applied to patient. jp3 13:11 Warm blanket given. Verbal reassurance given. Pulse ox on. NIBP on. jp3 14:41 CT completed. Patient tolerated procedure well. Patient moved back from CT. mw3 14:42 CT Chest, Abdomen, Pelvis - W/Contrast In Process Unspecified. EDMS 15:52 IV discontinued, intact, bleeding controlled, No redness/swelling at site. Pressure mg2 dressing applied. Administered Medications: 13:23 Drug: fentaNYL (PF) 25 mcg Route: IVP; Site: left antecubital; mg2 15:26 Follow up: Response: No adverse reaction; Marked relief of symptoms mg2 13:23 Drug: NS 0.9% 500 ml Route: IV; Rate: 500 ml/hr; Site: left antecubital; mg2 15:26 Follow up: Response: No adverse reaction; IV Status: Completed infusion; IV Intake: mg2 500ml 15:25 Drug: TORadol - Ketorolac 15 mg Route: IVP; Site: right forearm; mg2 15:26 Follow up: Response: No adverse reaction; Medication administered at discharge. mg2 15:26 Drug: Flexeril 10 mg Route: PO; mg2 15:26 Follow up: Response: No adverse reaction; Medication administered at discharge. mg2 Intake: 12:42 PO: 0ml; Total: 0ml. mg2 15:26 IV: 500ml; Total: 500ml. mg2 Outcome: 15:21 Discharge ordered by MD. cp 15:53 Discharged to home via wheelchair, with family. mg2 15:53 Condition: stable 15:53 Discharge instructions given to patient, family, Instructed on discharge instructions, follow up and referral plans. medication usage, Demonstrated understanding of instructions, follow-up care, medications, Prescriptions given X 3. 15:55 Patient's length of stay in the Emergency Department was greater than 2 hours. awaiting mg2 all the tests back and pain control. Patient's length of stay extended due to 15:56 Patient left the ED. mg2 Signatures: Dispatcher [employer] EDNE Cee Patterson Audri RN RN aa5 Jonah Mcwilliams PA PA cp Gardose, Michele, RN RN mg2 Domenica Gardner mw3 Guille Jenkins jp3 Corrections: (The following items were deleted from the chart) 11:45 11:44 BP 118 / 57; Pulse 67bpm; Resp 16bpm; Spontaneous; Pulse Ox 99% RA; Temp 98.8F aa5 Oral; 88 kg Reported; Height 5 ft. 2 in. Reported; BMI: 35.4; aa5 15:52 12:42 Patient did not have IV access during this emergency room visit. mg2 mg2
--- NOTE | 2018-11-25 15:23 | EDPHYS ---
Physician Documentation [facility] Name: Mariah Jones Age: 68 yrs Sex: Female : 1950 Arrival Date: 11/25/2018 Time: 11:29 Bed 24 Private MD: Maurisio Sousa E ED Physician Jonah Kent HPI: 11/25 13:00 This 68 yrs old Female presents to ER via Wheelchair with complaints of Fall cp Injury. 13:00 Details of fall: The patient fell from an upright position, while walking, and struck a cp concrete surface. 13:00 Onset: The symptoms/episode began/occurred yesterday. Associated injuries: The patient cp sustained injury to the chest, specifically the left lateral chest and abdomen. Severity of symptoms: in the emergency department the symptoms are unchanged, despite home interventions. Historical: - Allergies: 11:44 GABAPENTIN; aa5 - Home Meds: 11:44 amlodipine oral [Active]; glimepiride Oral [Active]; Metformin Oral [Active]; Lyrica aa5 Oral [Active]; atorvastatin oral oral [Active]; Aspirin Oral [Active]; metoprolol [Active]; - PMHx: 11:44 Diabetes - NIDDM; Hypertension; Hyperlipidemia; aa5 - PSHx: 11:44 Aortic Valve Replacement; aa5 - Immunization history:: Flu vaccine is up to date. Pneumococcal vaccine is up to date. - Social history:: Smoking status: Patient/guardian denies using tobacco. - Immunization history: Last tetanus immunization: unknown. - Ebola Screening: : No symptoms or risks identified at this time. ROS: 13:05 Constitutional: Negative for body aches, chills, fever. cp 13:05 Neck: Negative for pain with movement, pain at rest, stiffness, tenderness. 13:05 Cardiovascular: Positive for chest pain. 13:05 Respiratory: Negative for cough, shortness of breath, wheezing. 13:05 Abdomen/GI: Positive for abdominal pain. 13:05 Neuro: Negative for altered mental status, headache, loss of consciousness, weakness. 13:05 All other systems are negative. Exam: 13:15 Constitutional: The patient appears in no acute distress, alert, awake, cp non-diaphoretic, non-toxic, well developed, well nourished, uncomfortable. 13:15 Head/Face: Normocephalic, atraumatic. cp 13:15 Eyes: Periorbital structures: appear normal, Pupils: equal, round, and reactive to light and accomodation, Extraocular movements: intact throughout, Lids and lashes: appear normal, bilaterally. 13:15 ENT: External ear(s): are unremarkable, Nose: is normal, Mouth: Lips: moist, Oral mucosa: pink and intact, moist, Posterior pharynx: is normal, airway is patent, no erythema, no exudate. 13:15 Neck: C-spine: vertebral tenderness, is not appreciated, crepitus, is not appreciated, ROM/movement: is normal, is supple, without pain, no range of motions limitations, no nuchal rigidity. 13:15 Chest/axilla: Inspection: normal, Palpation: crepitus, is not appreciated, tenderness, that is moderate, of the left lateral lower chest, that partially reproduces the patient's complaints. 13:15 Cardiovascular: Rate: normal, Rhythm: regular. 13:15 Respiratory: the patient does not display signs of respiratory distress, Respirations: normal, no use of accessory muscles, no retractions, no splinting, no tachypnea, labored breathing, is not present, Breath sounds: are clear throughout, no decreased breath sounds, no stridor, no wheezing. 13:15 Abdomen/GI: Inspection: abdomen appears normal, Bowel sounds: active, all quadrants, Palpation: soft, in all quadrants, moderate abdominal tenderness, in the posterior aspect of left lateral abdomen and anterior aspect of left lateral abdomen, rebound tenderness, is not appreciated. 13:15 Musculoskeletal/extremity: Exam is negative for decreased range of motion, deformity. 13:15 Skin: cellulitis, is not appreciated, no rash present. 13:15 Neuro: Orientation: to person, place \T\ time. Mentation: is normal, Cerebellar function: is grossly normal, Motor: moves all fours, strength is normal. Vital Signs: 11:44 BP 118 / 57; Pulse 67; Resp 16 S; Temp 98.8(O); Pulse Ox 99% on R/A; Weight 88 kg (R); aa5 Height 5 ft. 2 in. (157.48 cm) (R); Pain 10/10; 13:47 BP 100 / 53; Pulse 70; Resp 18; Pulse Ox 100% on R/A; mg2 15:27 BP 114 / 76; Pulse 74; Resp 18; Temp 98; Pulse Ox 100% on R/A; mg2 11:44 Body Mass Index 35.48 (88.00 kg, 157.48 cm) aa5 Jesika Coma Score: 12:42 Eye Response: spontaneous(4). Verbal Response: oriented(5). Motor Response: obeys mg2 commands(6). Total: 15. 15:27 Eye Response: spontaneous(4). Verbal Response: oriented(5). Motor Response: obeys mg2 commands(6). Total: 15. Trauma Score (Adult): 12:42 Eye Response: spontaneous(1); Verbal Response: oriented(1); Motor Response: obeys mg2 commands(2); Systolic BP: > 89 mm Hg(4); Respiratory Rate: 10 to 29 per min(4); Jesika Score: 15; Trauma Score: 12 15:27 Eye Response: spontaneous(1); Verbal Response: oriented(1); Motor Response: obeys mg2 commands(2); Systolic BP: > 89 mm Hg(4); Respiratory Rate: 10 to 29 per min(4); Cypress Score: 15; Trauma Score: 12 MDM: 12:36 Patient medically screened. 15:20 Data reviewed: vital signs, nurses notes, lab test result(s), radiologic studies, CT cp scan. 15:20 Counseling: I had a detailed discussion with the patient and/or guardian regarding: the cp historical points, exam findings, and any diagnostic results supporting the discharge/admit diagnosis, lab results, radiology results, to return to the emergency department if symptoms worsen or persist or if there are any questions or concerns that arise at home. Response to treatment: the patient's symptoms have mildly improved after treatment, and as a result, I will discharge patient. ED course: VSS. CT negative for acute trauma. Will discharge to home for continued monitoring. 11/25 12:54 Order name: Basic Metabolic Panel; Complete Time: 13:49 cp 11/25 13:49 Interpretation: Normal except: CL 109; GLUC 158; BUN 19; GFR 47; CA 8.2. 11/25 12:54 Order name: CBC with Diff; Complete Time: 14:59 cp 11/25 15:00 Interpretation: Normal except: WBC 13.0; RBC 3.28; HGB 9.4; HCT 28.2; JANENE% 78.8; LYM% cp 14.6; NEUT A 10.2. 11/25 12:54 Order name: Creatinine for Radiology; Complete Time: 13:49 11/25 12:54 Order name: Type And Screen 11/25 12:54 Order name: CT Chest, Abdomen, Pelvis - W/Contrast; Complete Time: 15:02 11/25 15:04 Interpretation: Report reviewed. 11/25 12:54 Order name: PT-INR; Complete Time: 13:49 11/25 12:54 Order name: Labs collected and sent; Complete Time: 13:09 cp Administered Medications: 13:23 Drug: fentaNYL (PF) 25 mcg Route: IVP; Site: left antecubital; mg2 15:26 Follow up: Response: No adverse reaction; Marked relief of symptoms mg2 13:23 Drug: NS 0.9% 500 ml Route: IV; Rate: 500 ml/hr; Site: left antecubital; mg2 15:26 Follow up: Response: No adverse reaction; IV Status: Completed infusion; IV Intake: mg2 500ml 15:25 Drug: TORadol - Ketorolac 15 mg Route: IVP; Site: right forearm; mg2 15:26 Follow up: Response: No adverse reaction; Medication administered at discharge. mg2 15:26 Drug: Flexeril 10 mg Route: PO; mg2 15:26 Follow up: Response: No adverse reaction; Medication administered at discharge. mg2 Disposition: 11/25/18 15:21 Discharged to Home. Impression: Fall on same level from slipping, tripping and stumbling, Other chest pain - left lateral chest. - Condition is Stable. - Discharge Instructions: Chest Wall Pain, Fall Prevention in the Home. - Prescriptions for Ibuprofen 800 mg Oral Tablet - take 1 tablet by ORAL route every 8 hours As needed take with food; 30 tablet. Cyclobenzaprine 10 mg Oral Tablet - take 1 tablet by ORAL route every 8 hours As needed; 20 tablet. Tramadol 50 mg Oral Tablet - take 1 tablet by ORAL route every 8 hours as needed; 15 tablet. - Medication Reconciliation Form, Thank You Letter, Antibiotic Education, Prescription Opioid Use form. - Problem is new. - Symptoms have improved. Addendum: 11/27/2018 08:33 Co-signature as Attending Physician, Jonah Donte MD I agree with the assessment and c batista plan of care. Signatures: Dispatcher [employer] EDJonah Limon MD MD cha Calderon, Audri, RN RN aa5 Jonah Mcwilliams PA PA cp Jamie Patrick, RN RN mg2 Corrections: (The following items were deleted from the chart) 11/25 13:49 13:49 Normal except: CL 109; GLUC 158; BUN 19; GFR 47. cp cp 15:56 15:21 11/25/2018 15:21 Discharged to Home. Impression: Fall on same level from mg2 slipping, tripping and stumbling; Other chest pain - left lateral chest. Condition is Stable. Forms are Medication Reconciliation Form, Thank You Letter, Antibiotic Education, Prescription Opioid Use. Problem is new. Symptoms have improved. cp
[2018-11-25] MEDS ORDERED: CEFTRIAXONE/SWI 1gm 1 GM/10 ML SYR ONE (15:46)
[2018-11-25 16:11] VITALS: O2SAT 100
[2018-11-25 16:12] VITALS: BP 114/76; TEMP 98
== END 2018-11-25 15:56 | disposition home or self-care (01) ==
LOC: ER 11:25
DX: R07.89 Other chest pain (principal); W01.0XXA Fall on same level from slipping, tripping and stumbling without subsequent striking against object, initial encounter; Y93.9 Activity, unspecified; Y92.9 Unspecified place or not applicable; I10 Essential (primary) hypertension; E11.9 Type 2 diabetes mellitus without complications; Z79.82 Long term (current) use of aspirin; Z95.4 Presence of other heart-valve replacement; Z88.8 Allergy status to other drugs, medicaments and biological substances
CPT/HCPCS: 96361; 85025; 80048; 36415; 86900; 86850; 85610; 86902; 86870; 86901; 71260; 74177; 96375; 96374; 99285; Q9967; J3010; J0696

== ENCOUNTER 2019-03-20 07:14 | Inpatient (IN) | payer OTHER ==
[2019-03-20] MEDS ORDERED: NOREPINEPHRINE 4mg/D5W 250mL 4 MG/250 ML BAG IV ONE ×3 (08:17→13:40)
[2019-03-20] MEDS ORDERED: D5W 1,000 ML with NA BICARB 8.4% 150 MEQ IV SCH ×2 (08:45)
[2019-03-20 08:58] LABS: Protime INR 0.97
--- NOTE | 2019-03-20 09:02 | RAD REPORT ---
EXAM DESCRIPTION: Gordon Single View03/20/2019 7:47 am CLINICAL HISTORY: Shortness of breath COMPARISON: May 2018 FINDINGS: An endotracheal tube has its tip well above the akira Moderate bilateral pulmonary opacities are present. The heart is enlarged. Postsurgical changes involve the chest. IMPRESSION: Endotracheal tube in good position Moderate bilateral pulmonary opacities probably pulmonary edema
--- NOTE | 2019-03-20 09:03 | ER ---
Nurse's Notes [facility] Name: Mariah Jones Age: 68 yrs Sex: Female : 1950 Arrival Date: 03/20/2019 Time: 07:21 Bed 3 Private MD: Diagnosis: Cardiac arrest;Respiratory arrest;Hypotension, unspecified;Pneumonia;Acute kidney failure Presentation: 03/20 07:02 Presenting complaint: EMS states: pt called 911 for dyspnea, called back a few sv mins later stating that she stopped breathing. Call was at 0630. On EMS arrival at 0633 pt was unresponsive, CPR started. Combitube inserted orally 18G L AC started Epinephrine given at 0658. BS-338. Care prior to arrival: Medication(s) given: Epinephrine given. IV initiated. 18 GA, in the left antecubital area, Glucose check: 338. Compressions began prior to arrival. 07:02 Method Of Arrival: EMS: [facility] sv 07:02 Acuity: AMEE 1 sv 07:30 Note Information received from the spouse was that pt woke up out of sleep stating she sv couldn't breathe and called 911 and then she stopped breathing. 08:28 Transition of care: patient was not received from another setting of care. Onset of sv symptoms was March 20, 2019. Risk Assessment: Do you want to hurt yourself or someone else? Unable to obtain. 14:14 Initial Sepsis Screen: Does the patient meet any 2 criteria? Temp <36.0*C (96.8*F)) or jl7 > 38.3*C (100.9*F). Systolic BP < 90 mmHg. Mean Arterial Pressure (MAP) < 65. Yes Does the patient have a suspected source of infection? Yes: Productive cough/pneumonia If YES to both, name of provider notified: Elton Haas MD. Historical: - Allergies: 07:40 GABAPENTIN; sv - Home Meds: 14:13 amlodipine oral [Active]; Aspirin Oral [Active]; atorvastatin Oral [Active]; jl7 Glimepiride Oral [Active]; Lyrica Oral [Active]; Metformin Oral [Active]; metoprolol [Active]; - PMHx: 07:40 aortic valve replacement; Diabetes - NIDDM; Hyperlipidemia; Hypertension; sv - PSHx: 07:40 Aortic Valve Replacement; sv - Immunization history:: Adult Immunizations unknown. - Social history:: Smoking status: unknown. - Ebola Screening: : Unable to complete screening because patient is unresponsive, patient is intubated, patient does not understand. Screenin:27 Abuse screen: pt intubated, unable to complete. Nutritional screening: unable to sv complete, pt intubated. Tuberculosis screening: unable to complete, pt intubated . Fall Risk No fall in past 12 months (0 pts). No secondary diagnosis (0 pts). IV access (20 points). Ambulatory Aid- None/Bed Rest/Nurse Assist (0 pts). Gait- Normal/Bed Rest/Wheelchair (0 pts) Mental Status- Overestimates/Forgets Limitations (15 pts.). Total Krishna Fall Scale indicates High Risk Score (45 or more points). Assessment: 07:02 CPR assessment: unresponsive, no respiratory effort, intubated, Ambu ventilation, pale. sv Cardiac rhythm is PEA. General: Appears distressed, well developed, Behavior is unresponsive. Respiratory: Airway via oral intubation Respiratory effort is even, Respiratory pattern is symmetrical. Derm: Skin is pale. 07:09 Reassessment: CPR paused, pulse check, PEA, CPR resumed. sv 07:10 Reassessment: CPR paused, pulse check, PEA, CPR resumed. sv 07:12 Reassessment: Pt in Vfib, shocked at 150 J. Pulse back at 0713-ST. sv 07:26 Reassessment: Pt has no pulse at this time, PEA, CPR started. sv 07:28 Reassessment: CPR paused, pulse check, PEA, CPR resumed. sv 07:30 Reassessment: CPR paused, pulse check, asystole, CPR resumed. sv 07:33 Reassessment: CPR paused, pulse check, ST-150. sv 07:43 Reassessment: Pulse check HR-56 SB. sv 07:54 Reassessment: Pulse check, PEA, CPR started. sv 07:56 Reassessment: CPR paused, pulse back HR-72 SR. sv 09:00 General: Appears distressed, Behavior is unresponsive. Pain: Unable to use pain scale. jl7 Patient is unresponsive. Neuro: Level of Consciousness is unresponsive, Pupils are dilated, non-reactive. Cardiovascular: Heart tones S1 S2 present Patient's skin is warm and dry. Rhythm is regular. Respiratory: Airway via oral intubation Respiratory effort is even, Respiratory pattern is symmetrical, Breath sounds with crackles bilaterally. GI: Abdomen is round non-distended. : Koo in place to gravity drainage Urine is clear. Derm: Skin is dry, Skin is pale, Skin temperature is cool. 09:15 Reassessment: Dr. Holly at bedside. [facility] 10:00 Reassessment: No changes from previously documented assessment. Family remains at [facility] bedside. 12:00 Reassessment: No changes from previously documented assessment. Neuro: Level of [facility] Consciousness is unresponsive, Pupils are dilated, non-reactive. 13:00 Reassessment: No changes from previously documented assessment. Family remains at [facility] bedside. General:. 14:00 Reassessment: Renal doctor at bedside discussing results and POC with family. [facility] 15:00 Reassessment: No changes from previously documented assessment. Neuro: Level of [facility] Consciousness is unresponsive, Pupils are dilated, non-reactive. Cardiovascular: Patient's skin is warm and dry. Rhythm is sinus tachycardia. Respiratory: Airway via oral intubation Respiratory effort is even, Respiratory pattern is symmetrical. : Koo in place to gravity drainage. Derm: Skin is pink, warm \T\ dry. 15:30 Reassessment: Pt's watch and rings removed and given to pt's daughter. [facility] 16:00 Reassessment: No changes from previously documented assessment. Pt ER hold, see [address] for further documentation. Vital Signs: 07:33 BP 147 / 99; Pulse 123; Pulse Ox 100% on ETT ambu; sv 07:40 Pulse 78 MON; sv 07:45 BP 52 / 39; Pulse Ox 100% on ETT vent; sv 07:49 BP 96 / 68; Pulse 55; Resp 18; Pulse Ox 100% on 100% FiO2 ETT vent; sv 08:15 BP 68 / 42; sv 08:22 BP 71 / 38; Pulse 85; Resp 14; Pulse Ox 100% on 100% FiO2 ETT vent; sv 08:30 BP 78 / 38; Pulse 87; Resp 18; Pulse Ox 100% on 100% FiO2 ETT vent; sv 09:00 BP 92 / 39; Pulse 91; Resp 18; Temp 93.2; Pulse Ox 100% ; jl7 09:05 BP 89 / 40; Pulse 92; Resp 18 A; Temp 93.2(C); Pulse Ox 100% on ETT vent; jl7 09:10 BP 94 / 39; Pulse 94; Resp 18 A; Temp 93.2(O); Pulse Ox 100% on ETT vent; jl7 09:26 BP 92 / 43; Pulse 96; Resp 18 A; Temp 93.1(C); Pulse Ox 100% on ETT vent; jl7 09:33 BP 94 / 44; Pulse 97; Resp 18 A; Pulse Ox 98% on ETT vent; jl7 09:45 BP 98 / 40; Pulse 100; Resp 18; Pulse Ox 99% ; jl7 10:00 BP 98 / 47; Pulse 102; Resp 18 A; Pulse Ox 99% on ETT vent; jl7 10:15 BP 100 / 44; Pulse 106; Resp 18 A; Pulse Ox 99% on ETT vent; jl7 10:30 BP 101 / 43; Pulse 108; Resp 18 A; Pulse Ox 100% on ETT vent; jl7 10:45 BP 103 / 41; Pulse 110; Resp 18 S; Pulse Ox 99% on ETT vent; jl7 11:00 BP 99 / 46; Pulse 111; Resp 18 A; Pulse Ox 97% on ETT vent; jl7 11:08 Temp 95.2(C); jl7 11:15 BP 101 / 46; Pulse 113; Resp 18 A; Temp 95.4(C); Pulse Ox 96% on ETT vent; jl7 11:30 BP 100 / 46; Pulse 113; Resp 18 S; Pulse Ox 96% on ETT vent; jl7 11:45 BP 101 / 45; Pulse 115; Resp 18 A; Pulse Ox 96% on ETT vent; jl7 12:00 BP 100 / 46; Pulse 117; Resp 18 A; Pulse Ox 97% on ETT vent; jl7 12:15 BP 102 / 48; Pulse 116; Resp 18 A; Pulse Ox 97% on ETT vent; jl7 12:30 BP 100 / 46; Pulse 118; Resp 18 A; Pulse Ox 97% on ETT vent; jl7 12:45 BP 100 / 47; Pulse 121; Resp 18 S; Pulse Ox 97% on ETT vent; jl7 13:00 BP 100 / 51; Pulse 122; Resp 18 A; Pulse Ox 96% on ETT vent; jl7 13:15 BP 91 / 47; Pulse 124; Resp 18 A; Pulse Ox 96% on ETT vent; jl7 13:30 BP 99 / 48; Pulse 122; Resp 18 A; Pulse Ox 96% on ETT vent; jl7 13:45 BP 103 / 47; Pulse 124; Resp 18 S; Pulse Ox 95% on ETT vent; jl7 14:00 BP 96 / 47; Pulse 125; Resp 18 A; Temp 99.4(C); Pulse Ox 95% on ETT vent; jl7 14:15 BP 102 / 47; Pulse 124; Resp 18 A; Pulse Ox 95% on ETT vent; jl7 14:30 BP 97 / 53; Pulse 124; Resp 18 S; Temp 99.7(C); Pulse Ox 95% on ETT vent; jl7 14:45 BP 98 / 59; Pulse 126; Resp 18 A; Pulse Ox 95% on ETT vent; jl7 15:00 BP 97 / 48; Pulse 126; Resp 18 A; Temp 99.8(C); Pulse Ox 94% on ETT vent; jl7 15:15 BP 98 / 48; Pulse 124; Resp 18 A; Pulse Ox 95% on ETT vent; jl7 15:30 BP 98 / 44; Pulse 125; Resp 18 A; Temp 99.8(C); Pulse Ox 95% on ETT vent; jl7 15:45 BP 96 / 46; Pulse 125; Resp 18 A; Pulse Ox 94% on ETT vent; jl7 16:00 BP 97 / 45; Pulse 122; Resp 18 A; Pulse Ox 94% on ETT vent; jl7 07:40 Sinus Rhythm sv 07:45 Sinus Rhythm sv 07:49 Sinus Rhythm sv 07:49 TV-400 AC-14 sv 08:30 rate-18, change dby Amber [employer] sv ED Course: 07:02 Placed in gown. Bed in low position. Side rails up X2. oracle adf consultant on. Pulse ox on. sv NIBP on. 07:07 Assisted provider with intubation using 7.5 mm ETT via oral route. ET tube secured at sv 23cm at the teeth. Set up intubation tray. Intubated by Elton Haas MD Placement verified by CO2 detector w/ + color change, auscultating bilateral breath sounds. 07:17 EKG done, by ED staff, reviewed by Elton Haas MD. sv 07:21 Patient arrived in ED. sv 07:24 NGT: inserted 12 Fr. via left nare. other done by Abbie MC verified placement of air sv over stomach, to intermittent suction. Patient tolerated well. 07:29 Assisted provider with central line placement. Set up central line tray. Triple lumen jl7 line placed in right femoral. Line placed by Elton Haas MD Placement verified by CXR, blood return, Dressed with Tegaderm, Blood was collected. Patient tolerated well. Before procedure, did Practitioner(s) obtain informed consent? No. Patient \T\ family education about procedure, CLABSI prevention and S/S of infection? No. Time-out/Briefing performed prior to start of procedure? Yes. Was handwashing/sanitizing done immediately prior to procedure? Yes. Was patient positioned to in a way to prevent air embolism? Yes. Was procedure site sterilized? Yes, with chlorhexidine. Was the site allowed to dry? Was local anesthetic and/or sedation utilized? Yes. During the procedure, did the Practitioner(s) maintain a sterile field? Yes. Were unused ports clamped during insertion? Yes. Was a 2nd qualified MD obtained after 3 unsuccessful insertion attempts? No. Was blood aspirated from each lumen? Yes. After the procedure, did the Practitioner(s) clean the site and apply a sterile dressing? Yes. 07:30 Triage completed. sv 07:34 Elton Haas MD is Attending Physician. rn 07:43 EKG done, by swimming pool service technician. reviewed by Elton Haas MD. sv 07:44 XRAY CXR (1 view) In Process Unspecified. EDMS 07:45 Koo cath inserted, using sterile technique, 16 Fr., by rug inspector, balloon inflated, to sv gravity drainage, returned clear yellow urine. 08:07 EKG done, by swimming pool service technician. reviewed by Elton Haas MD. at1 08:28 Patient has correct armband on for positive identification. sv 08:34 Blood Culture Adult (2) Sent. sv 08:34 BMP Sent. sv 08:34 CBC with Diff Sent. sv 08:34 Ckmb Sent. sv 08:35 CPK Sent. sv 09:00 Kirsten June RN is Primary Nurse. jl7 09:01 Julita Calle MD is Hospitalizing Provider. rn 09:07 Oziel Holly DO is Hospitalizing Provider. rn 11:03 Flu Sent. jl7 14:41 Arm band placed on right wrist. jl7 16:00 Patient admitted, IV remains in place. intact, No redness/swelling at site. jl7 18:08 Notified primary nurse of critical lab of CKMB-17.6 troponin-8.79. sv Administered Medications: 07:05 Drug: EPINEPHrine 0.1mg/mL 1:10,000 1 mg Route: IVP; Site: left antecubital; sv 09:37 Follow up: Response: No adverse reaction jl7 07:06 Drug: Sodium Bicarbonate 1 amp Route: IVP; Site: left antecubital; sv 10:17 Follow up: Response: No adverse reaction jl7 07:08 Drug: EPINEPHrine 0.1mg/mL 1:10,000 1 mg Route: IVP; Site: left antecubital; sv 10:18 Follow up: Response: No adverse reaction jl7 07:11 Drug: EPINEPHrine 0.1mg/mL 1:10,000 1 mg Route: IVP; Site: left antecubital; sv 10:18 Follow up: Response: No adverse reaction jl7 07:12 Drug: Sodium Bicarbonate 1 amp Route: IVP; Site: left antecubital; sv 10:17 Follow up: Response: No adverse reaction jl7 07:16 Drug: NS 0.9% 1000 ml Route: IV; Rate: 1000 ml; Site: left antecubital; sv 10:09 Follow up: Response: No adverse reaction; IV Status: Completed infusion; IV Intake: jl7 1000ml 07:16 Drug: Magnesium Sulfate 1 grams Route: IVPB; Infused Over: 15 mins; Site: left sv antecubital; 07:30 Follow up: Response: No adverse reaction; IV Status: Completed infusion; IV Intake: sv 100ml 07:29 Drug: EPINEPHrine 0.1mg/mL 1:10,000 1 mg Route: IVP; Site: left antecubital; sv 10:18 Follow up: Response: No adverse reaction jl7 10:21 Follow up: Response: No adverse reaction jl7 07:30 Drug: Sodium Bicarbonate 1 amp Route: IVP; Site: left antecubital; sv 10:08 Follow up: Response: No adverse reaction jl7 07:30 Drug: Dopamine drip 5 mcg/kg/min - (DOPamine 400 mg, D5W 250 ml) {Note: started at 10 sv mcg/gh/min.} Route: IV; Rate: calculated rate; Site: right femoral; 07:33 Follow up: Rate change 7.5 calculated rate sv 07:40 Follow up: Rate change 20 calculated rate sv 15:50 Follow up: IV Status: Infusion continued upon admission jl7 07:32 Drug: EPINEPHrine 0.1mg/mL 1:10,000 1 mg Route: IVP; Site: left antecubital; sv 10:21 Follow up: Response: No adverse reaction jl7 07:40 Drug: amiodarone 150 mg Route: IVP; Site: right femoral; sv 09:38 Follow up: Response: No adverse reaction jl7 07:47 Drug: NS 0.9% 1000 ml Route: IV; Rate: 1000 ml; Site: right femoral; sv 08:40 Follow up: Response: No adverse reaction; IV Status: Completed infusion; IV Intake: jl7 1000ml 07:55 Drug: EPINEPHrine 0.1mg/mL 1:10,000 1 mg Route: IVP; Site: right femoral; sv 09:37 Follow up: Response: No adverse reaction jl7 08:02 CANCELLED (Duplicate Order): amiodarone 150 mg 100 ml IVPB once over 10 mins; (mix in rn D5W) 08:02 CANCELLED (Duplicate Order): amiodarone 900 mg, D5W 500 ml IVPB at 1 mg/min continuous; rn for 6 hrs, then change to 0.5 mg/min 08:11 CANCELLED (Duplicate Order): NS 0.9% 1000 ml IV at 1000 ml once sv 08:11 CANCELLED (Duplicate Order): Dopamine drip 5 mcg/kg/min - (DOPamine 400 mg, D5W 250 ml) sv IV at calculated rate continuous; Titrate to keep systolic blood pressure greater than 90mmHg 08:16 Drug: Levophed (4 mg/250 mL D5W 4 mcg/min Route: IV; Rate: calculated rate; Site: right sv femoral; 08:23 Follow up: Rate change 7.5 calculated rate sv 08:26 Follow up: Rate change 10 calculated rate sv 08:32 Follow up: Rate change 12.5 calculated rate sv 08:40 Follow up: Rate change 15 mcg/min jl7 08:45 Follow up: Rate change 17.5 mcg/min jl7 08:51 Follow up: Rate change 20 mcg/kg/min jl7 09:06 Follow up: Rate change 22.5 mcg/min jl7 09:34 Follow up: Rate change 25 mcg/min jl7 10:14 Follow up: Rate change 27.5 mcg/min 7 15:49 Follow up: IV Status: Infusion continued upon admission jl7 08:52 Drug: D5W 1000 ml, Sodium Bicarbonate 150 mEq Route: IV; Rate: 150 ml/hr; Site: right jl7 femoral; 15:50 Follow up: IV Status: Infusion continued upon admission jl7 09:30 Drug: NS 0.9% 1000 ml Route: IV; Rate: 1 bolus; Site: right femoral; 7 10:15 Follow up: IV Status: Completed infusion; IV Intake: 1000ml [facility] 09:49 Drug: Calcium Gluconate 2 grams Route: IVPB; Infused Over: 60 mins; Site: right femoral;7 10:07 Follow up: [address] Haas [facility] 10:50 Follow up: Response: No adverse reaction; IV Status: Completed infusion [facility] 10:04 Drug: LevaQUIN 750 mg Volume: 150 ml; Route: IVPB; Infused Over: 90 mins; Site: right jl7 femoral; 11:36 Follow up: Response: No adverse reaction; IV Status: Completed infusion [facility] 11:02 Drug: Cefepime 1 grams Route: IVPB; Rate: 200 ml/hr; Infused Over: 30 mins; Site: left jl7 antecubital; 11:36 Follow up: Response: No adverse reaction; IV Status: Completed infusion [facility] Point of Care Testing: Blood Glucose: 07:09 Blood Glucose: 344 mg/dL; sv Ranges: Intake: 07:30 IV: 100ml; Total: 100ml. sv 08:40 IV: 1000ml; Total: 1100ml. jl7 10:09 IV: 1000ml; Total: 2100ml. jl7 10:15 IV: 1000ml; Total: 3100ml. [facility] Outcome: 09:02 Decision to Hospitalize by Provider. rn 18:30 Admitted to ICU accompanied by nurse, accompanied by tech, family with patient, via [facility] stretcher, room 3, with oxygen, on monitor, with chart, Report called to ALEXANDRO Dow 18:30 critical 18:30 Discharge instructions given to family, Instructed on the need for admit, Demonstrated understanding of instructions. 18:30 Outcome Resuscitation successful [facility] 18:37 Patient left the ED. jl7 Signatures: Dispatcher [employer] EDJosefina Jain, RN Elton Chan MD MD rn Gonzales, Amanda, fiberglass boat builder EKG Tat1 Kirsten June RN RN [email or web address] Corrections: (The following items were deleted from the chart) 08:32 08:30 BP 68 / 60; Pulse 87bpm; Resp 18bpm; Pulse Ox 100% FiO2 100% vent; rate-18, sv change dby Amber [employer]; sv 11:35 11:32 IV Status: Completed infusion; IV Intake: 1000ml [place] [id number] 14:37 13:45 BP 96 / 47; Pulse 125bpm; Resp 18bpm; Assisted; Pulse Ox 95% ET / Ventilator; [facility] Temp 99.4F Catheter; [facility] 14:38 14:30 BP 97 / 53; Pulse 124bpm; Resp 18bpm; Spontaneous; Pulse Ox 95% RA; [place] [id number]
--- NOTE | 2019-03-20 09:03 | EDPHYS ---
Physician Documentation [facility] Name: Mariah Jones Age: 68 yrs Sex: Female : 1950 Arrival Date: 03/20/2019 Time: 07: Bed 3 Private MD: ED Physician Elton Haas HPI: 03/20 07:59 This 68 yrs old Female presents to ER via EMS with complaints of CPR. rn 07:59 Preceding the arrest, the patient was dyspneic. The arrest occurred at home. rn Pre-hospital course: Bystanders at the scene did not perform CPR. EMS care prior to arrival: initiation of ACLS, peripheral IV, Other combitube. ACLS details: Initial rhythm was PEA. The presenting rhythm is PEA. Response to therapy: continued arrest. It is unknown whether or not the patient has had similar symptoms in the past. Per report, called 911, for difficulty breathing, a few minutes after initial call called again and stated was unresponsive, family reports recent road trip here in [place], had been feeling sick and congested. Was using breathing treatments last few days, no chest pain. No pulse regained for EMS.. Historical: - Allergies: 07:40 GABAPENTIN; sv - Home Meds: 14:13 amlodipine oral [Active]; Aspirin Oral [Active]; atorvastatin Oral [Active]; jl7 Glimepiride Oral [Active]; Lyrica Oral [Active]; Metformin Oral [Active]; metoprolol [Active]; - PMHx: 07:40 aortic valve replacement; Diabetes - NIDDM; Hyperlipidemia; Hypertension; sv - PSHx: 07:40 Aortic Valve Replacement; sv - Immunization history:: Adult Immunizations unknown. - Social history:: Smoking status: unknown. - Ebola Screening: : Unable to complete screening because patient is unresponsive, patient is intubated, patient does not understand. ROS: 08:38 Unable to obtain ROS due to comatose state. rn Exam: 08:38 Constitutional: Overweight female with combitube in place, no spont movement rn Head/Face: Normocephalic, atraumatic. Eyes: Pupils 6mm, non-reactive ENT: No oral trauma Neck: No crepitus Cardiovascular: NO spont cardiac activity Respiratory: Corase bilateral breath sounds with bagging Abdomen/GI: soft, non-distended MS/ Extremity: No peripheral or central pulses Neuro: GCS 3 Vital Signs: 07:33 BP 147 / 99; Pulse 123; Pulse Ox 100% on ETT ambu; sv 07:40 Pulse 78 MON; sv 07:45 BP 52 / 39; Pulse Ox 100% on ETT vent; sv 07:49 BP 96 / 68; Pulse 55; Resp 18; Pulse Ox 100% on 100% FiO2 ETT vent; sv 08:15 BP 68 / 42; sv 08:22 BP 71 / 38; Pulse 85; Resp 14; Pulse Ox 100% on 100% FiO2 ETT vent; sv 08:30 BP 78 / 38; Pulse 87; Resp 18; Pulse Ox 100% on 100% FiO2 ETT vent; sv 09:00 BP 92 / 39; Pulse 91; Resp 18; Temp 93.2; Pulse Ox 100% ; jl7 09:05 BP 89 / 40; Pulse 92; Resp 18 A; Temp 93.2(C); Pulse Ox 100% on ETT vent; jl7 09:10 BP 94 / 39; Pulse 94; Resp 18 A; Temp 93.2(O); Pulse Ox 100% on ETT vent; jl7 09:26 BP 92 / 43; Pulse 96; Resp 18 A; Temp 93.1(C); Pulse Ox 100% on ETT vent; jl7 09:33 BP 94 / 44; Pulse 97; Resp 18 A; Pulse Ox 98% on ETT vent; jl7 09:45 BP 98 / 40; Pulse 100; Resp 18; Pulse Ox 99% ; jl7 10:00 BP 98 / 47; Pulse 102; Resp 18 A; Pulse Ox 99% on ETT vent; jl7 10:15 BP 100 / 44; Pulse 106; Resp 18 A; Pulse Ox 99% on ETT vent; jl7 10:30 BP 101 / 43; Pulse 108; Resp 18 A; Pulse Ox 100% on ETT vent; jl7 10:45 BP 103 / 41; Pulse 110; Resp 18 S; Pulse Ox 99% on ETT vent; jl7 11:00 BP 99 / 46; Pulse 111; Resp 18 A; Pulse Ox 97% on ETT vent; jl7 11:08 Temp 95.2(C); jl7 11:15 BP 101 / 46; Pulse 113; Resp 18 A; Temp 95.4(C); Pulse Ox 96% on ETT vent; jl7 11:30 BP 100 / 46; Pulse 113; Resp 18 S; Pulse Ox 96% on ETT vent; jl7 11:45 BP 101 / 45; Pulse 115; Resp 18 A; Pulse Ox 96% on ETT vent; jl7 12:00 BP 100 / 46; Pulse 117; Resp 18 A; Pulse Ox 97% on ETT vent; jl7 12:15 BP 102 / 48; Pulse 116; Resp 18 A; Pulse Ox 97% on ETT vent; jl7 12:30 BP 100 / 46; Pulse 118; Resp 18 A; Pulse Ox 97% on ETT vent; jl7 12:45 BP 100 / 47; Pulse 121; Resp 18 S; Pulse Ox 97% on ETT vent; jl7 13:00 BP 100 / 51; Pulse 122; Resp 18 A; Pulse Ox 96% on ETT vent; jl7 13:15 BP 91 / 47; Pulse 124; Resp 18 A; Pulse Ox 96% on ETT vent; jl7 13:30 BP 99 / 48; Pulse 122; Resp 18 A; Pulse Ox 96% on ETT vent; jl7 13:45 BP 103 / 47; Pulse 124; Resp 18 S; Pulse Ox 95% on ETT vent; jl7 14:00 BP 96 / 47; Pulse 125; Resp 18 A; Temp 99.4(C); Pulse Ox 95% on ETT vent; jl7 14:15 BP 102 / 47; Pulse 124; Resp 18 A; Pulse Ox 95% on ETT vent; jl7 14:30 BP 97 / 53; Pulse 124; Resp 18 S; Temp 99.7(C); Pulse Ox 95% on ETT vent; jl7 14:45 BP 98 / 59; Pulse 126; Resp 18 A; Pulse Ox 95% on ETT vent; jl7 15:00 BP 97 / 48; Pulse 126; Resp 18 A; Temp 99.8(C); Pulse Ox 94% on ETT vent; jl7 15:15 BP 98 / 48; Pulse 124; Resp 18 A; Pulse Ox 95% on ETT vent; jl7 15:30 BP 98 / 44; Pulse 125; Resp 18 A; Temp 99.8(C); Pulse Ox 95% on ETT vent; jl7 15:45 BP 96 / 46; Pulse 125; Resp 18 A; Pulse Ox 94% on ETT vent; jl7 16:00 BP 97 / 45; Pulse 122; Resp 18 A; Pulse Ox 94% on ETT vent; jl7 07:40 Sinus Rhythm sv 07:45 Sinus Rhythm sv 07:49 Sinus Rhythm sv 07:49 TV-400 AC-14 sv 08:30 rate-18, change dby Amber [employer] sv Procedures: 08:20 Intubation: Ventilated with 100% NRB prior to procedure. O2 saturation prior to rn urology was 70 %. Intubated orally using # 4 Marlon blade with 7.5 mm ETT. was successful on first attempt. Cricoid pressure applied during procedure. Tube secured with ETT pérez at right side of mouth measured 23 cm at teeth. Placement verified by CXR, CO2 detector with (+) color change, auscultating bilateral breath sounds, O2 saturation after procedure was 97 %. Patient tolerated well. Central Line: the site was prepped with Betadine, in sterile fashion, a triple lumen catheter was inserted, in the right femoral vein, in 2 attempts. placement was verified, by blood return, the site was dressed with Tegaderm, using sterile technique, the patient tolerated the procedure, well. 08:21 CPR: See CPR flow sheet. Initial patient assessment: unresponsive, pulses present w/ rn compressions, The presenting cardiac rhythm is PEA. ventilations per thumper, Compressions: began prior to arrival. Defibrillation: 200 joules X 1. Response to defibrillation - return of rhythm. regained rhythm, Family notified. MDM: 07:34 Patient medically screened. rn 09:00 Differential diagnosis: arrythmia, cardiac arrest, respiratory arrest. Data reviewed: rn vital signs, nurses notes, EKG, radiologic studies, plain films, and as a result, I will admit patient. Test interpretation: by ED physician or midlevel provider: ECG, plain radiologic studies, CXR with bilateral pulmonary opacities pneumonia vs pulmonary edema. Counseling: I had a detailed discussion with the patient and/or guardian regarding: the historical points, exam findings, and any diagnostic results supporting the discharge/admit diagnosis, lab results. Response to treatment: the patient's symptoms have mildly improved after treatment, and as a result, I will admit patient. Admission orders: after a detailed discussion of the patient's condition and case, the admit orders are written by ne. 03/20 07:35 Order name: Blood Culture Adult (2) rn 03/20 07:35 Order name: BMP rn 03/20 07:35 Order name: CBC with Diff rn 03/20 07:35 Order name: Ckmb rn 03/20 07:35 Order name: CPK rn 03/20 07:35 Order name: Hepatic Function; Complete Time: 09:12 rn 03/20 07:35 Order name: Lipase; Complete Time: 09:12 rn 03/20 07:35 Order name: Magnesium; Complete Time: 09:12 rn 03/20 07:35 Order name: NT PRO-BNP; Complete Time: 09:12 rn 03/20 07:35 Order name: PT-INR; Complete Time: 09:12 rn 03/20 07:35 Order name: Ptt, Activated; Complete Time: 09:12 rn 03/20 07:35 Order name: Troponin (emerg Dept Use Only); Complete Time: 09:12 03/20 07:36 Order name: Blood Culture EDAR 03/20 07:36 Order name: Basic Metabolic Panel; Complete Time: 09:12 EDAR 03/20 07:35 Order name: XRAY CXR (1 view); Complete Time: 09:06 rn 03/20 07:36 Order name: CBC with Automated Diff; Complete Time: 09:12 EDAR 03/20 07:36 Order name: CKMB Creatine Kinase MB; Complete Time: 09:12 EDAR 03/20 07:36 Order name: Creatine Phosphokinase; Complete Time: 09:12 EDAR 03/20 07:42 Order name: Lactate; Complete Time: 09:24 rn 03/20 07:42 Order name: Procalcitonin; Complete Time: 10:44 rn 03/20 08:02 Order name: Flu rn 03/20 08:02 Order name: Influenza Screen (A ; Complete Time: 09:24 EDAR 03/20 08:25 Order name: ABG; Complete Time: 10:44 rn 03/20 10:43 Order name: ABG rn 03/20 11:18 Order name: ABG Arterial Blood Gas; Complete Time: 14:15 EDAR 03/20 12:13 Order name: Lactate Sepsis 2 HR Follow-up; Complete Time: 14:15 EDAR 03/20 16:18 Order name: Blood Culture EDAR 03/20 18:10 Order name: Creatine Phosphokinase [facility] 03/20 18:10 Order name: CKMB Creatine Kinase MB [facility] 03/20 18:10 Order name: Troponin I [facility] 03/20 07:35 Order name: EKG; Complete Time: 07:37 rn 03/20 07:35 Order name: Cardiac monitoring; Complete Time: 08:34 rn 03/20 07:35 Order name: EKG - Nurse/Tech; Complete Time: 08:34 rn 03/20 07:35 Order name: IV Saline Lock; Complete Time: 08:34 rn 03/20 07:35 Order name: Labs collected and sent; Complete Time: 08:34 rn 03/20 08:27 Order name: EKG Electrocardiogram; Complete Time: 08:29 EDAR 03/20 08:27 Order name: EKG Electrocardiogram; Complete Time: 08:29 EDAR 03/20 08:27 Order name: EKG Electrocardiogram; Complete Time: 08:29 EDAR 03/20 07:35 Order name: O2 Per Protocol; Complete Time: 08:34 rn 03/20 07:35 Order name: O2 Sat Monitoring; Complete Time: 08:34 rn Administered Medications: 07:05 Drug: EPINEPHrine 0.1mg/mL 1:10,000 1 mg Route: IVP; Site: left antecubital; sv 09:37 Follow up: Response: No adverse reaction jl7 07:06 Drug: Sodium Bicarbonate 1 amp Route: IVP; Site: left antecubital; sv 10:17 Follow up: Response: No adverse reaction jl7 07:08 Drug: EPINEPHrine 0.1mg/mL 1:10,000 1 mg Route: IVP; Site: left antecubital; sv 10:18 Follow up: Response: No adverse reaction jl7 07:11 Drug: EPINEPHrine 0.1mg/mL 1:10,000 1 mg Route: IVP; Site: left antecubital; sv 10:18 Follow up: Response: No adverse reaction jl7 07:12 Drug: Sodium Bicarbonate 1 amp Route: IVP; Site: left antecubital; sv 10:17 Follow up: Response: No adverse reaction jl7 07:16 Drug: NS 0.9% 1000 ml Route: IV; Rate: 1000 ml; Site: left antecubital; sv 10:09 Follow up: Response: No adverse reaction; IV Status: Completed infusion; IV Intake: jl7 1000ml 07:16 Drug: Magnesium Sulfate 1 grams Route: IVPB; Infused Over: 15 mins; Site: left sv antecubital; 07:30 Follow up: Response: No adverse reaction; IV Status: Completed infusion; IV Intake: sv 100ml 07:29 Drug: EPINEPHrine 0.1mg/mL 1:10,000 1 mg Route: IVP; Site: left antecubital; sv 10:18 Follow up: Response: No adverse reaction jl7 10:21 Follow up: Response: No adverse reaction jl7 07:30 Drug: Sodium Bicarbonate 1 amp Route: IVP; Site: left antecubital; sv 10:08 Follow up: Response: No adverse reaction jl7 07:30 Drug: Dopamine drip 5 mcg/kg/min - (DOPamine 400 mg, D5W 250 ml) {Note: started at 10 sv mcg/gh/min.} Route: IV; Rate: calculated rate; Site: right femoral; 07:33 Follow up: Rate change 7.5 calculated rate sv 07:40 Follow up: Rate change 20 calculated rate sv 15:50 Follow up: IV Status: Infusion continued upon admission jl7 07:32 Drug: EPINEPHrine 0.1mg/mL 1:10,000 1 mg Route: IVP; Site: left antecubital; sv 10:21 Follow up: Response: No adverse reaction 7 07:40 Drug: amiodarone 150 mg Route: IVP; Site: right femoral; sv 09:38 Follow up: Response: No adverse reaction 7 07:47 Drug: NS 0.9% 1000 ml Route: IV; Rate: 1000 ml; Site: right femoral; sv 08:40 Follow up: Response: No adverse reaction; IV Status: Completed infusion; IV Intake: jl7 1000ml 07:55 Drug: EPINEPHrine 0.1mg/mL 1:10,000 1 mg Route: IVP; Site: right femoral; sv 09:37 Follow up: Response: No adverse reaction [facility] er 08:02 CANCELLED (Duplicate Order): amiodarone 150 mg 100 ml IVPB once over 10 mins; (mix in rn D5W) 08:02 CANCELLED (Duplicate Order): amiodarone 900 mg, D5W 500 ml IVPB at 1 mg/min continuous; rn for 6 hrs, then change to 0.5 mg/min 08:11 CANCELLED (Duplicate Order): NS 0.9% 1000 ml IV at 1000 ml once sv 08:11 CANCELLED (Duplicate Order): Dopamine drip 5 mcg/kg/min - (DOPamine 400 mg, D5W 250 ml) sv IV at calculated rate continuous; Titrate to keep systolic blood pressure greater than 90mmHg 08:16 Drug: Levophed (4 mg/250 mL D5W 4 mcg/min Route: IV; Rate: calculated rate; Site: right sv femoral; 08:23 Follow up: Rate change 7.5 calculated rate sv 08:26 Follow up: Rate change 10 calculated rate sv 08:32 Follow up: Rate change 12.5 calculated rate sv 08:40 Follow up: Rate change 15 mcg/min jl7 08:45 Follow up: Rate change 17.5 mcg/min jl7 08:51 Follow up: Rate change 20 mcg/kg/min jl7 09:06 Follow up: Rate change 22.5 mcg/min jl7 09:34 Follow up: Rate change 25 mcg/min jl7 10:14 Follow up: Rate change 27.5 mcg/min jl7 15:49 Follow up: IV Status: Infusion continued upon admission jl7 08:52 Drug: D5W 1000 ml, Sodium Bicarbonate 150 mEq Route: IV; Rate: 150 ml/hr; Site: right jl7 femoral; 15:50 Follow up: IV Status: Infusion continued upon admission jl7 09:30 Drug: NS 0.9% 1000 ml Route: IV; Rate: 1 bolus; Site: right femoral; jl7 10:15 Follow up: IV Status: Completed infusion; IV Intake: 1000ml jl7 09:49 Drug: Calcium Gluconate 2 grams Route: IVPB; Infused Over: 60 mins; Site: right femoral;jl7 10:07 Follow up: [address] Haas jl7 10:50 Follow up: Response: No adverse reaction; IV Status: Completed infusion jl7 10:04 Drug: LevaQUIN 750 mg Volume: 150 ml; Route: IVPB; Infused Over: 90 mins; Site: right jl7 femoral; 11:36 Follow up: Response: No adverse reaction; IV Status: Completed infusion jl7 11:02 Drug: Cefepime 1 grams Route: IVPB; Rate: 200 ml/hr; Infused Over: 30 mins; Site: left jl7 antecubital; 11:36 Follow up: Response: No adverse reaction; IV Status: Completed infusion jl7 Point of Care Testing: Blood Glucose: 07:09 Blood Glucose: 344 mg/dL; sv Ranges: Critical Glucose Levels:Adult <50 mg/dl or >400 mg/dl <40 mg/dl or >180 mg/dl Disposition: 09: Critical Care:. rn Disposition: 03/20/19 09:02 Hospitalization ordered by Oziel Holly for Inpatient Admission. Preliminary diagnosis are Cardiac arrest, Respiratory arrest, Hypotension, unspecified, Pneumonia, Acute kidney failure. - Bed requested for Intensive Care Unit. - Status is Inpatient Admission. jl7 - Condition is Critical. - Problem is new. - Symptoms have improved. UTI on Admission? No Critical care time excluding procedures: : Critical care time: Bedside Care: 35 minutes, Consultation: 5 minutes, Family rn Intervention: 10 minutes. Total time: 50 minutes Signatures: Dispatcher [employer] EDMS Consuelo Linares Stephanie, RN RN Elton Liriano MD MD rn Leal, Jahala, ALEXANDRO RN jl7 Corrections: (The following items were deleted from the chart) 08:02 07:42 amiodarone 150 mg 100 ml IVPB once over 10 mins; (mix in D5W) ordered. rn rn 08:02 07:42 amiodarone 900 mg, D5W 500 ml IVPB at 1 mg/min continuous; for 6 hrs, then change rn to 0.5 mg/min ordered. rn 08:11 07:42 NS 0.9% 1000 ml IV at 1000 ml once ordered. rn sv 08:11 07:42 Dopamine drip 5 mcg/kg/min - (DOPamine 400 mg, D5W 250 ml) IV at calculated rate sv continuous; Titrate to keep systolic blood pressure greater than 90mmHg ordered. rn 09: 09:02 Hospitalization Ordered by Julita Calle MD for Inpatient Admission. Preliminary rn diagnosis is Cardiac arrest; Respiratory arrest; Hypotension, unspecified. Bed requested for Intensive Care Unit. Status is Inpatient Admission. Condition is Critical. Problem is new. Symptoms have improved. UTI on Admission? No. 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 Preliminary diagnosis is Cardiac arrest; Respiratory arrest; Hypotension, unspecified; Pneumonia. Bed requested for Intensive Care Unit. Status is Inpatient Admission. Condition is Critical. Problem is new. Symptoms have improved. UTI on Admission? No. 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 Preliminary diagnosis is Cardiac arrest; Respiratory arrest; Hypotension, unspecified; Pneumonia. Bed requested for Intensive Care Unit. Status is Inpatient Admission. Condition is Critical. Problem is new. Symptoms have improved. UTI on Admission? No. rn 15:09 09:25 03/20/2019 09:02 Hospitalization Ordered by Oziel Holly DO for Inpatient bd Admission. Preliminary diagnosis is Cardiac arrest; Respiratory arrest; Hypotension, unspecified; Pneumonia; Acute kidney failure. Bed requested for Intensive Care Unit. Status is Inpatient Admission. Condition is Critical. Problem is new. Symptoms have improved. UTI on Admission? No. rn 16:27 15:09 03/20/2019 09:02 Hospitalization Ordered by Oziel Holly DO for Inpatient bd Admission. Preliminary diagnosis is Cardiac arrest; Respiratory arrest; Hypotension, unspecified; Pneumonia; Acute kidney failure. Bed requested for [facility] ER HOLD. Status is Inpatient Admission. Condition is Critical. Problem is new. Symptoms have improved. UTI on Admission? No. bd 18:37 16:27 03/20/2019 09:02 Hospitalization Ordered by Oziel Holly DO for Inpatient jl7 Admission. Preliminary diagnosis is Cardiac arrest; Respiratory arrest; Hypotension, unspecified; Pneumonia; Acute kidney failure. Bed requested for Intensive Care Unit. Status is Inpatient Admission. Condition is Critical. Problem is new. Symptoms have improved. UTI on Admission? No. bd
[2019-03-20 09:06] LABS: Absolute Lymphocytes (CBC) 5.3 K/uL (0.7-4.9); Basophils % 0.7 % (0-1.3); Hematocrit 27.2 % (36.0-45.0); Lymphocytes % 42.4 % (15.3-44.8); MPV 9.1 fL (7.6-11.3); RBC Red Blood Cell Count 2.99 M/uL (3.86-4.86)
[2019-03-20 09:08] LABS: ALT/SGPT 292 U/L (12-78); Albumin 2.4 g/dL (3.4-5.0); Alkaline Phosphatase 89 U/L (45-117); BUN Blood Urea Nitrogen 30 mg/dL (7-18); Bicarbonate 20 mmol/L (21-32); Bilirubin Direct < 0.1 mg/dL (0-0.2); Bilirubin Total 0.3 mg/dL (0.2-1.0); CKMB Creatine Kinase MB 2.5 ng/mL (0.3-3.6); Creatine Phosphokinase 143 U/L (26-192); Glucose Level 397 mg/dL (74-106); Lipase 220 U/L (73-393); Magnesium 3.3 mg/dL (1.8-2.4); NT PRO-BNP 811 pg/mL (<125); Potassium 4.9 mmol/L (3.5-5.1); Protein, Total 5.5 g/dL (6.4-8.2); Sodium Level 144 mmol/L (136-145); Troponin (Emerg Dept Use Only) 0.18 ng/mL (0.0-0.045)
[2019-03-20 09:10] LABS: AST/SGOT 347 U/L (15-37)
[2019-03-20] MEDS ORDERED: CALCIUM GLUCONATE 1 GM IVPB 1 GM/50 ML BAG IV ONE (09:30)
[2019-03-20 09:32] LABS: Arterial Blood Carboxyhemoglob 0.2 % (0-1.5); Blood Gas Oxyhemoglobin 94.8 % (94-97); Blood O2 Saturation 96.1 % (92-98.5)
[2019-03-20] MEDS ORDERED: Levofloxacin 750mg IV 750 MG/150 ML BAG IV ONE (09:43)
--- NOTE | 2019-03-20 09:49 | P.HP ---
Certification for Inpatient Patient admitted to: Inpatient With expected LOS: >2 Midnights Patient will require the following post-hospital care: None Practitioner: I am a practitioner with admitting privileges, knowledge of patient current condition, hospital course, and medical plan of care. Services: Services provided to patient in accordance with Admission requirements found in Title 42 Section 412.3 of the Code of Federal Regulations Patient History Date of Service: 03/20/19 Primary Care Provider: Unknown Reason for admission: CPR, shortness of breath History of Present Illness: 68-year-old female with history of hypertension, diabetes presented to the emergency room by EMS. Most of the information came from the ER physician and family. Patient had been complaining of shortness of breath over the past several days. She also reported cough, congestion. Today she became very short of breath. This was noted by her . As the shortness of breath got worse patient when an to cardiac arrest. EMS was called. CPR was not started until EMS arrived. This was likely around 5-10 min. The patient was then transferred to the ER for further evaluation. Patient came to the ER in [place]. CPR continued. Patient was intubated. A pulse was finally obtained. Patient remains in sinus rhythm. Upon further evaluation by the ER physician patient was found to have severe metabolic acidosis with acute respiratory failure likely related to CHF. The patient was started on IV antibiotic therapy, fluids, and vasopressors. Patient currently on dopamine and Levophed. Patient was admitted for further treatment. When I arrived the patient was intubated and sedated. Blood pressure stable at this time with vasopressor therapy. Patient continues with IV fluids with bicarb min. Patient also continues with IV antibiotic therapy. Allergies gabapentin Adverse Reaction (Verified 02/19/16 19:21) Nausea/Vomiting Home medications list reviewed: Yes Home Medications: Amlodipine/Atorvastatin [Amlodipine-Atorvast 10-40 mg] 10 mg PO DAILY 02/19/16 Aspirin [Aspirin EC 81 MG] 81 mg PO DAILY 02/19/16 Hydrocodone Bit/Acetaminophen [[place] 10-325 Tablet] 1 each PO Q4H PRN 02/19/16 carisoprodoL [Carisoprodol] 350 mg PO Q4H PRN 02/19/16 Amitriptyline [Elavil*] 10 mg PO BEDTIME #30 tab 02/20/16 Diphenhydramine [Benadryl*] 50 mg PO PRN 07/22/17 Insulin Detemir [Levemir] 14 units SQ BEDTIME 07/22/17 Metformin HCl 1,000 mg PO DAILY 07/22/17 Trazodone HCl 100 mg PO BEDTIME 07/22/17 Cyanocobalamin [Vitamin B-12*] 1,000 mcg PO DAILY #90 tab 07/25/17 Doxycycline Hyclate 100 mg PO BID #14 tablet 07/25/17 Ferrous Sulfate [Ferrous Sulfate*] 325 mg PO BID #60 tab 07/25/17 Stefan/Bacit/Poly Oint [Neosporin Ointment*] 1 appl TOP BID #1 tube 07/25/17 Sulfamethoxazole/Trimethoprim [Bactrim Ds Tablet] 1 each PO BID #14 tablet 07/25 lisinopriL [Prinivil*] 10 mg PO BID #60 tab 07/25/17 - Past Medical/Surgical History Diabetic: Yes -: Diabetes mellitus type 2 insulin dependent -: HTN -: Bio prostatic aortic valve -: Chronic renal disease stage III -: Hysterectomy -: Aortic Valve Replacement 2001 Psychosocial/ Personal History: Patient lives at home. - Family History Father -: Heart disease, Hypertension Brother -: Heart disease, Diabetes, Stroke Notes: both brothers had stroke. 2 brothers had heart disease Sister -: Diabetes Mother -: Heart disease - Social History Smoking Status: Unknown if ever smoked Alcohol use: Yes CD- Drugs: No Caffeine use: Yes Place of Residence: Home Review of Systems 10-point ROS is otherwise unremarkable General: Fever Eyes: Unremarkable ENT: Nose Congestion Respiratory: Cough, Shortness of Breath, SOB with Excertion, As per HPI Cardiovascular: Paroxysmal Noc. Dyspnea, As per HPI Gastrointestinal: Unremarkable Genitourinary: Unremarkable Musculoskeletal: Unremarkable Integumentary: Unremarkable Neurological: Weakness, As per HPI Lymphatics: Unremarkable Physical Examination - Physical Exam General: Other (Patient intubated and sedated.) HEENT: Other (Pupils dilated and fixed. No gag reflex noted) Neck: Supple Respiratory: Clear to auscultation bilaterally, Normal air movement Cardiovascular: Normal pulses, Regular rate/rhythm Gastrointestinal: Normal bowel sounds, Soft and benign, Non-distended Musculoskeletal: No erythema, No tenderness, No warmth Integumentary: No warmth, No cyanosis Neurological: Other (Patient intubated and sedated) - Studies Laboratory Data (last 24 hrs) 03/20/19 08:15: PT 11.5, INR 0.97, APTT 35.5 03/20/19 08:15: WBC 12.4 H, Hgb 8.0 L, Hct 27.2 L, Plt Count 212 03/20/19 08:15: Sodium 144, Potassium 4.9, BUN 30 H, Creatinine 1.70 H, Glucose 397 H, Magnesium 3.3 H D, Total Bilirubin 0.3, AST 347 H*, ALT 292 H, Alkaline Phosphatase 89, Lipase 220 Microbiology Data (last 24 hrs): 03/20/19 08:45 Nasopharnyx Influenza Type A Antigen Screen - Final 03/20/19 08:45 Nasopharnyx Influenza Type B Antigen Screen - Final Assessment and Plan - Plan Impression: Acute respiratory failure suspect acute on chronic systolic CHF status post cardiac arrest with PEA/CPR Acute on chronic renal disease stage III Acute liver failure Diabetes mellitus type 2 insulin dependent with hyperglycemia Anemia of chronic disease History of bioprosthetic valve replacement Plan: Acute respiratory failure suspect acute on chronic systolic CHF status post cardiac arrest with PEA/CPR: Patient will be admitted to ICU. Will continue with IV fluids. Will start IV vancomycin and cefepime. Will need to rule out infectious cause. Blood, sputum and urine culture obtained. Case discussed with pulmonology. Patient will continue on ventilator. Continue vent protocol. Will consult cardiology, nephrology. Will obtain EEG to evaluate brain function. Patient critical with poor prognosis. Recheck chest x-ray and ABG. Will monitor closely. Monitor electrolytes. Electrolyte protocol in place. Case discussed at length with family and . They understand her current situation. We will continue to monitor closely over the next 24-48 hr. If no significant change will need to discuss with family about advanced directives and withdrawal of care. Patient currently full code. Acute on chronic renal disease stage III: Continue IV fluids. Will monitor electrolytes. Electrolyte protocol in place. Nephrology consulted. Acute liver failure: Likely related to above. Will monitor liver function test. Diabetes mellitus type 2 insulin dependent with hyperglycemia: Will continue Accu-Cheks and place sliding scale. Anemia of chronic disease: Will monitor this closely. Patient may require blood transfusion. History of bioprosthetic valve replacement: Continue to monitor closely. Cardiology consulted. Discharge Plan: Home Plan to discharge in: Greater than 2 days - Advance Directives Does patient have a Living Will: No Does patient have a Durable POA for Healthcare: No - Code Status/Comfort Care Code Status Assessed: Yes (Patient currently full code) Time Spent Managing Pts Care (In Minutes): 75
[2019-03-20] MEDS ORDERED: Calcium Gluconate 9.3 mEq (=2gm)/NS 100 mL IVPB IV ONE ×2 (10:00)
[2019-03-20] MEDS ORDERED: DOPAMINE/D5W 400 MG/250 ML BAG IV ONE ×3 (10:23→18:11)
[2019-03-20 10:59] LABS: Arterial Blood Carboxyhemoglob 0.6 % (0-1.5); Blood Gas Oxyhemoglobin 89.1 % (94-97); Blood O2 Saturation 90.7 % (92-98.5)
--- NOTE | 2019-03-20 11:24 | EKG ---
Test Date: 2019-03-20 Test Time: 08:01:21 Slack Cooper: KALLIE MEASUREMENT RESULTS: Intervals: Rate: 89 MN: 192 QRSD: 158 QT: 450 QTc: 547 [place]: P: 38 MN: 192 QRS: 2 T: 112 INTERPRETIVE STATEMENTS: Normal sinus rhythm Left bundle branch block Abnormal ECG Compared to ECG 03/20/2019 07:43:57 Atrial fibrillation no longer present Electronically Signed On 03-20-19 11:23:20 PATENT LEATHER SORTER by Sandeep Ulloa
--- NOTE | 2019-03-20 11:25 | EKG ---
Test Date: 2019-03-20 Test Time: 07:43:57 Steward/Stewardess Third: KALLIE MEASUREMENT RESULTS: Intervals: Rate: 62 [place]: QRSD: 158 QT: 492 QTc: 499 [place]: P: [place]: QRS: -1 T: 51 INTERPRETIVE STATEMENTS: Atrial fibrillation with a competing junctional pacemaker Left bundle branch block Abnormal ECG Compared to ECG 03/20/2019 07:36:57 Sinus tachycardia no longer present Fusion complex(es) no longer present Ventricular premature complex(es) no longer present Electronically Signed On 03-20-19 11:23:22 COMMUNITY ENGAGEMENT LEADER by Sandeep Ulloa
--- NOTE | 2019-03-20 11:25 | EKG ---
Test Date: 2019-03-20 Test Time: 07:20:06 Sample Maker Hand: KALLIE MEASUREMENT RESULTS: Intervals: Rate: 124 MA: 152 QRSD: 122 QT: 356 QTc: 511 [place]: P: MA: 152 QRS: 11 T: 101 INTERPRETIVE STATEMENTS: Sinus tachycardia Left bundle branch block Abnormal ECG Compared to ECG 06/10/2018 18:15:24 Sinus rhythm no longer present Electronically Signed On 03-20-19 11:23:40 BEHAVIORAL HEALTH ASSOCIATE by Sandeep Ulloa
--- NOTE | 2019-03-20 11:25 | EKG ---
Test Date: 2019-03-20 Test Time: 07:36:57 Wide Area Network Administrator: KALLIE MEASUREMENT RESULTS: Intervals: Rate: 122 TN: 152 QRSD: 146 QT: 346 QTc: 493 [employer]: P: TN: 152 QRS: 4 T: 142 INTERPRETIVE STATEMENTS: Sinus tachycardia with occasional premature ventricular complexes and fusion complexes Left bundle branch block Abnormal ECG Compared to ECG 03/20/2019 07:20:06 Fusion complex(es) now present Ventricular premature complex(es) now present Electronically Signed On 03-20-19 11:23:38 ROLLING ATTENDANT by Sandeep Ulloa
[2019-03-20] MEDS ORDERED: ALBUTEROL 2.5 MG/3 ML NEB SOL NEB PRN (16:04)
[2019-03-20] MEDS ORDERED: ACETAMINOPHEN 650MG/RECT SUPP PR PRN (16:04)
[2019-03-20] MEDS: INSULIN -REGULAR HUMAN 50 UNIT/0.5 ML ML SQ SCH ×2 (16:04→16:30)
[2019-03-20] MEDS ORDERED: ONDANSETRON 4 MG/2 ML VIAL IV PRN (16:04)
[2019-03-20] MEDS ORDERED: IPRATROPIUM BROM 0.5MG/2.5ML NEB PRN (16:04)
[2019-03-20 16:11] VITALS: BMI 36.6
[2019-03-20] MEDS: CEFEPIME/SWI 1gm 10 ML IVP SCH (17:00)
[2019-03-20] MEDS ORDERED: VANCOMYCIN 1.5 GM in NA CHLORIDE 0.9% 500 ML IVPB SCH (17:00)
[2019-03-20 18:05] LABS: Troponin I 8.79 ng/mL (0.0-0.045)
[2019-03-20 18:10] LABS: CKMB Creatine Kinase MB 17.6 ng/mL (0.3-3.6)
[2019-03-20 18:51] LABS: Arterial Blood Carboxyhemoglob 1.1 % (0-1.5); Blood Gas Oxyhemoglobin 91.1 % (94-97); Blood O2 Saturation 93.2 % (92-98.5)
[2019-03-20] MEDS ORDERED: INSULIN -REGULAR HUMAN 50 UNIT/0.5 ML ML SQ SCH (18:57)
[2019-03-20] MEDS ORDERED: HYDROCORTISONE NA SUC 200 MG in NA CHLORIDE 0.9% 100 ML IV ONE (19:51)
[2019-03-20] MEDS ORDERED: HYDROCORTISONE SUC 100 MG INJ IV ONE (19:54)
--- NOTE | 2019-03-20 20:09 | RAD REPORT ---
EXAM DESCRIPTION: RAD - Chest Single View - 03/20/2019 8:03 pm CLINICAL HISTORY: 100% fio2 to determine if any fluid is on lungs Chest pain. COMPARISON: Chest Single View dated 03/20/2019; Chest Single View dated 06/10/2018; Chest Single View dated 02/20/2016; Chest Single View dated 02/19/2016 FINDINGS: Portable technique limits examination quality. Small bilateral pleural effusions are suspected, slightly larger on the right. Mild interstitial pulm onary edema seen. ET tube tip is above the akira. The heart is moderately enlarged in size with ster notomy wires present. No displaced fractures. IMPRESSION: Mild moderate CHF/ volume overload pattern is suspected. ET tube tip is above the akira .
[2019-03-20] MEDS ORDERED: GLUCAGON 1 MG/VIAL IM PRN (20:14)
[2019-03-20] MEDS ORDERED: D50W 25 GM/50 ML SYRINGE/VIAL IV PRN (20:14)
[2019-03-20] MEDS ORDERED: NA CHLORIDE 0.9% 100 ML ONE (20:33)
[2019-03-20] MEDS ORDERED: WATER FOR INJ,STERILE 10 ML ONE (20:40)
[2019-03-20] MEDS: FAMOTIDINE 20 MG/2 ML VIAL IV SCH (20:46)
[2019-03-20] MEDS: INSULIN -REGULAR HUMAN 100 UNIT in NA CHLORIDE 0.9% 100 ML IV SCH (21:00)
[2019-03-20] MEDS ORDERED: CEFEPIME 1 GM/VIAL IV SCH (21:00)
[2019-03-20] MEDS: DOPAMINE/D5W 400 MG/250 ML BAG IV PRN (21:10)
[2019-03-20] MEDS: NOREPINEPHRINE 8 MG in Dextrose 5%-Water 500 ML IV PRN (21:11)
[2019-03-20 22:23] LABS: Blood Gas Oxyhemoglobin 95.4 % (94-97); Blood O2 Saturation 97.6 % (92-98.5)
--- NOTE | 2019-03-20 22:57 | P.CNS ---
Date of Consult: 03/20/19 Reason for Consult: BRANDEE , lactic acidosis Primary Care Provider: Unknown Chief Complaint: CPR, shortness of breath History of Present Illness: Pt is intubated, Hx obtained from family at bedside and chart A 68 Y/o woman with PMhx of DM and HTN , pt presented after cardiac arrest pt was complaining of SOB few days before admission, pt found unresponsive, wit ROSC after 5-10 minutes , In er Pt with pulseless electrical activity , a 2nd CPR started labs significant for lactic acid of 10, trop 0.18, Cr 1.7 and elevated LFT Allergies gabapentin Adverse Reaction (Verified 02/19/16 19:21) Nausea/Vomiting Home Medications: NK [No Home Meds] 03/20/19 - Past Medical/Surgical History Diabetic: Yes -: Diabetes mellitus type 2 insulin dependent -: HTN -: Bio prostatic aortic valve -: Chronic renal disease stage III -: Hyperlipidemia -: Hysterectomy -: Aortic Valve Replacement 2001 Psychosocial/ Personal History: Patient lives at home. - Family History Father Medical History: Heart disease, Hypertension Brother Medical History: Heart disease, Diabetes, Stroke Notes: both brothers had stroke. 2 brothers had heart disease Sister Medical History: Diabetes Mother Medical History: Heart disease - Social History Smoking Status: Never smoker Alcohol use: Yes CD- Drugs: No Caffeine use: Yes Place of Residence: Home Review of Systems is unable to be obtained Physical Examination Temp Pulse Resp BP Pulse Ox 121 H 16 118/49 L 94 03/20/19 18:45 03/20/19 18:30 03/20/19 18:45 03/20/19 18:45 General: Comatose, Other (intubated ) HEENT: Atraumatic, Normocephalic, Other (Pupils dilated ) Neck: Supple, Without JVD or thyroid abnormality Respiratory: Clear to auscultation bilaterally, Normal air movement, Other Cardiovascular: No edema, Normal S1 S2, No gallops, No rubs, No murmurs, Other ( tachycardia ) Gastrointestinal: Normal bowel sounds, Distended Musculoskeletal: No clubbing, No swelling, No erythema Integumentary: No rashes Laboratory Data (last 24 hrs) 03/20/19 08:15: PT 11.5, INR 0.97, APTT 35.5 03/20/19 08:15: WBC 12.4 H, Hgb 8.0 L, Hct 27.2 L, Plt Count 212 03/20/19 08:15: Sodium 144, Potassium 4.9, BUN 30 H, Creatinine 1.70 H, Glucose 397 H, Magnesium 3.3 H D, Total Bilirubin 0.3, AST 347 H*, ALT 292 H, Alkaline Phosphatase 89, Lipase 220 Conclusions/Impression: BRANDEE on ckd baseline Cr 1.1 due to ischemic ATN will cont bicarb drip renal dose meds Abd CT no hydro No need for renal replacement therapy at this time Lactic acidosis cont IVF and pressers S/P CPR now intubated Cont pressers elevated trop cont to trend elevated LFT due to shocked liver DM SSI poor prognosis
[2019-03-21 01:01] LABS: Potassium 4.9 mmol/L (3.5-5.1)
[2019-03-21 01:10] LABS: Troponin I 13.4 ng/mL (0.0-0.045)
[2019-03-21] MEDS: NOREPINEPHRINE 8 MG in Dextrose 5%-Water 500 ML IV PRN ×3 (01:22→13:37)
[2019-03-21] MEDS: DOPAMINE/D5W 400 MG/250 ML BAG IV PRN ×2 (01:23→08:31)
--- NOTE | 2019-03-21 04:28 | P.PN ---
Date of Service: 03/20/19 shaun cross cover: pt seen, evaluated and examined. pt's mother at the bedside pt intubated and not stiumulating the MV; without purposeful movement morbidly obese, no gag reflex, pupils fixed and dilated started on insulin gtt due to uncontrolled hyperglycemia maxed on 2 vasopressor support, pt remains full code per family. poor prognosis. family and medical staff aware obtain AM labs, per nursing tp is now on insulin gtt and titrate monitor UOP due to concern of renal injury.
[2019-03-21] MEDS ORDERED: CALCIUM GLUC 10% INJ 4.65 MEQ in NA CHLORIDE 0.9% 100 ML IV ONE (04:30)
[2019-03-21 05:08] LABS: Absolute Lymphocytes (CBC) 0.9 K/uL (0.7-4.9); Basophils % 0.2 % (0-1.3); Hematocrit 25.2 % (36.0-45.0); Lymphocytes % 3.7 % (15.3-44.8); MPV 8.8 fL (7.6-11.3); RBC Red Blood Cell Count 2.82 M/uL (3.86-4.86)
[2019-03-21 05:29] LABS: Albumin 2.1 g/dL (3.4-5.0); Bilirubin Total 0.4 mg/dL (0.2-1.0); Magnesium 1.6 mg/dL (1.8-2.4); Potassium 5.1 mmol/L (3.5-5.1); Protein, Total 5.3 g/dL (6.4-8.2); Thyroid Stimulating Hormone 1.7 uIU/mL (0.360-3.740)
[2019-03-21 05:56] LABS: Blood Gas Oxyhemoglobin 91.3 % (94-97); Blood O2 Saturation 93.3 % (92-98.5)
[2019-03-21] MEDS ORDERED: CALCIUM GLUCONATE 1 GM IVPB 1 GM/50 ML BAG IV ONE (06:10)
[2019-03-21 06:55] LABS: Blood Morphology Comment NOT SEEN (NOT SEEN); Platelet Estimate ADEQ
[2019-03-21] MEDS: INSULIN -REGULAR HUMAN 100 UNIT in NA CHLORIDE 0.9% 100 ML IV SCH (07:31)
--- NOTE | 2019-03-21 08:06 | RAD REPORT ---
EXAM DESCRIPTION: Gordon Single View03/21/2019 5:55 am CLINICAL HISTORY: Chest pain COMPARISON: March 20, 2019 FINDINGS: Endotracheal tube has its tip well above the akira [id number] bilateral pulmonary opacities with pleural effusions are without significant change The heart remains enlarged IMPRESSION: Mild to moderate CHF without significant change
--- NOTE | 2019-03-21 08:19 | P.CNS ---
Date of Consult: 03/20/19 Primary Care Provider: Unknown Chief Complaint: CPR, shortness of breath History of Present Illness: Patient is 68 years of age admitted with cardiopulmonary arrest discuss with the daughter she has been having some shortness of breath over the past 2 weeks orthopnea and PND worse in the past week Cruz was found unresponsive CPR done currently patient is in coma Shock no prior history of pulmonary problems never smoked she does have a history of coronary artery disease status post CABG for history of any fever or chills Allergies gabapentin Adverse Reaction (Verified 02/19/16 19:21) Nausea/Vomiting Home Medications: NK [No Home Meds] 03/20/19 - Past Medical/Surgical History Diabetic: Yes -: Diabetes mellitus type 2 insulin dependent -: HTN -: Bio prostatic aortic valve -: Chronic renal disease stage III -: Hyperlipidemia -: Hysterectomy -: Aortic Valve Replacement 2001 Psychosocial/ Personal History: Patient lives at home. - Family History Father Medical History: Heart disease, Hypertension Brother Medical History: Heart disease, Diabetes, Stroke Notes: both brothers had stroke. 2 brothers had heart disease Sister Medical History: Diabetes Mother Medical History: Heart disease - Social History Smoking Status: Never smoker Alcohol use: Yes CD- Drugs: No Caffeine use: Yes Place of Residence: Home Review of Systems is unable to be obtained Physical Examination Temp Pulse Resp BP Pulse Ox 98.6 F 123 H 10 L 141/48 H 97 03/21/19 04:00 03/21/19 07:00 03/21/19 06:00 03/21/19 07:00 03/21/19 07:00 General: Comatose Respiratory: Clear to auscultation bilaterally Cardiovascular: Normal S1 S2, Edema Gastrointestinal: Normal bowel sounds, Hypoactive Integumentary: No rashes, No breakdown Laboratory Data (last 24 hrs) 03/20/19 08:15: PT 11.5, INR 0.97, APTT 35.5 03/20/19 08:15: WBC 12.4 H, Hgb 8.0 L, Hct 27.2 L, Plt Count 212 03/20/19 08:15: Sodium 144, Potassium 4.9, BUN 30 H, Creatinine 1.70 H, Glucose 397 H, Magnesium 3.3 H D, Total Bilirubin 0.3, AST 347 H*, ALT 292 H, Alkaline Phosphatase 89, Lipase 220 - Problems (1) Cardiac arrest Current Visit: Yes Status: Acute Plan: Patient is 68 years of age admitted with cardiac arrest admitted with multiorgan failure abnormal liver function tests renal failure elevated troponin patient acidotic currently on vasopressors as also hyperglycemia start on an insulin drip 100% oxygen with at 10 of the all labs reviewed discuss with relatives continue to monitor prognosis poor chest x-ray shows cardiomegaly with possible heart failure Time Spent Managing Pts care (In Minutes): 60
--- NOTE | 2019-03-21 08:23 | P.PN ---
Subjective Date of Service: 03/21/19 Primary Care Provider: Unknown Chief Complaint: Cardiopulmonary arrest Patient is unresponsive hemodynamically stable been weaned off the vasopressors oxygenation satisfactory Physical Examination - Vital Signs Temperature: 98.6 F Blood Pressure: 141/48 Pulse: 123 Respirations: 10 Pulse Ox (%): 97 - Physical Exam General: Comatose Respiratory: Clear to auscultation bilaterally, Diminished Cardiovascular: Regular rate/rhythm, Edema - Studies Laboratory Data (last 24 hrs) 03/20/19 08:15: PT 11.5, INR 0.97, APTT 35.5 03/20/19 08:15: WBC 12.4 H, Hgb 8.0 L, Hct 27.2 L, Plt Count 212 03/20/19 08:15: Sodium 144, Potassium 4.9, BUN 30 H, Creatinine 1.70 H, Glucose 397 H, Magnesium 3.3 H D, Total Bilirubin 0.3, AST 347 H*, ALT 292 H, Alkaline Phosphatase 89, Lipase 220 Microbiology Data (last 24 hrs): 03/20/19 08:45 Nasopharnyx Influenza Type A Antigen Screen - Final 03/20/19 08:45 Nasopharnyx Influenza Type B Antigen Screen - Final Assessment & Plan - Problems (Diagnosis) (1) Cardiac arrest Current Visit: Yes Status: Acute Plan: Patient is coma toes no plantar responses pupils fixed dilated hemodynamically stable liver function tests have improved worsening renal failure acidosis corrected agree with withdrawal of care prognosis is very poor
[2019-03-21] MEDS: CEFEPIME/SWI 1gm 10 ML IVP SCH (08:38)
[2019-03-21] MEDS: FAMOTIDINE 20 MG/2 ML VIAL IV SCH (08:38)
[2019-03-21] MEDS ORDERED: ENOXAPARIN 40 MG/0.4 ML SQ SCH (09:00)
[2019-03-21] MEDS ORDERED: THIAMINE 200 MG/2 ML INJ IVP SCH (09:00)
[2019-03-21] MEDS ORDERED: FUROSEMIDE 40 MG/4 ML VIAL IV ONE (10:32)
[2019-03-21] MEDS ORDERED: Magnesium Sulfate 2gm IVPB 2 G/50 ML BAG IV ONE (10:32)
[2019-03-21] MEDS: CALCIUM GLUC 10% INJ 4.65 MEQ in NA CHLORIDE 0.9% 100 ML IV SCH ×2 (10:48→17:05)
[2019-03-21] MEDS ORDERED: FUROSEMIDE 40 MG in NA CHLORIDE 0.9% 50 ML IV ONE (11:00)
--- NOTE | 2019-03-21 11:24 | CON ---
History Of Present Illness: Ms. Jones is 68. She had a cardiac arrest yesterday and is in the IC U intubated. Since she has been here, neurological studies seem to indicate there may be a complete brain . She has no brainstem reflexes, no gag reflex. No respiratory activity at all. I am as ked to see her because of her history of heart trouble. She was seen in our hospital in 2016 and no other times in between. She was not under the care of a respite worker, I do not believe. She has a h istory of bypass surgery and aortic valve replacement sometime before 2015. I believe it was probabl y before 2009. She had underlying obesity and diabetes, but apparently was not taking any medication s. She suddenly felt short of breath, then lost consciousness. CPR was delayed until the EMS got th ere and all indications are that her central nervous system damage is extreme if not complete brain d eath. Physical Examination: Vital Signs: 5 feet 2 inches, 200 pounds, heart rate 123, blood pressure 141/48, temperature is 98.6 . Lungs: Breath sounds are equal bilaterally. Heart: Reveals a tachycardia, a systolic murmur consistent with mild aortic stenosis, probably she h as some stenosis within the bioprosthetic aortic valve. Extremities: Edematous, well perfused. No lesions are noted. Diagnostic Studies: Her electrocardiogram reveals sinus rhythm, left bundle branch block, although n ow it is sinus tachycardia. Impression: The patient is most likely brain , severely neurologically damaged at least. She is not a candidate for any cardiac interventions unless there is a very dramatic neurological recovery. Cardiology will sign of f the case. KULWINDER/MODL Voice ID: [id number] Report ID: [id number]
--- NOTE | 2019-03-21 11:47 | P.PN ---
Subjective Date of Service: 03/21/19 Primary Care Provider: Unknown Chief Complaint: Cardiopulmonary arrest Subjective: Other (Patient intubated. No significant change. Patient on vasopressor therapy.) Physical Examination - Vital Signs Temperature: 98.6 F Blood Pressure: 120/46 Pulse: 112 Respirations: 18 Pulse Ox (%): 96 - Physical Exam General: Other (Patient intubated. Negative reflux to pain.) HEENT: Other (Eyes fixed and dilated) Neck: Supple Respiratory: Crackles/rales (Crackles bilateral) Cardiovascular: Abnormal pulses (Sinus tachycardia) Gastrointestinal: Normal bowel sounds, Soft and benign, Non-distended Integumentary: Other (Edema to the upper or lower extremities noted) - Studies Microbiology Data (last 24 hrs): 03/20/19 08:45 Nasopharnyx Influenza Type A Antigen Screen - Final 03/20/19 08:45 Nasopharnyx Influenza Type B Antigen Screen - Final Medications List Reviewed: Yes Assessment & Plan Plan to discharge in: Unknown Physician Review Additional Text: Impression: Acute respiratory failure likely related to acute on chronic systolic CHF status post cardiac arrest with PEA/CPR now with possible anoxic brain injury Acute on chronic renal disease stage III Acute liver failure Diabetes mellitus type 2 insulin dependent with hyperglycemia Anemia of chronic disease History of bioprosthetic valve replacement Plan: Acute respiratory failure likely related to acute on chronic systolic CHF status post cardiac arrest with PEA/CPR now with possible anoxic brain injury: Patient remains in ICU. Continue IV vancomycin and cefepime. Blood, sputum and urine culture obtained. Patient remains intubated. Case discussed with nephrology, pulmonology, cardiology and neurology. Will order EEG and echocardiogram today. Patient likely with anoxic brain injury. Patient has poor prognosis for any type of neurologic recovery. Await EEG to determine if patient lacks any brain activity. Case discussed at length with family. They understand her current condition and prognosis. If no activity on EEG then they likely withdrawal care. Will need to discuss hospice at that time. Will also discuss and readdress advanced directives at that time. I will turn the service over to the hospitalist team tomorrow. I will go over plan of care with him. Acute on chronic renal disease stage III: Case discussed with nephrology. No improvement noted. Worsening noted. IV fluids discontinued. Acute liver failure: Likely related to above. Will monitor liver function. Liver failure continues. Diabetes mellitus type 2 insulin dependent with hyperglycemia: Patient early on insulin drip. Maintain adequate control of blood sugars. Anemia of chronic disease: Will monitor this closely. Patient may require blood transfusion. History of bioprosthetic valve replacement: Continue to monitor closely. Cardiology consulted. Time Spent Managing Pts Care (In Minutes): 55
--- NOTE | 2019-03-21 13:01 | ECHO ---
HEIGHT: 5 ft 2 in WEIGHT: 200 lb 0 oz DATE OF STUDY: 03/21/[address]: Oziel Holly DO 2-DIMENSIONAL: YES M.MODE: YES DOPPLER: YES COLOR FLOW: YES TDS: YES PORTABLE: YES DEFINITY: NO BUBBLE STUDY: NO DIAGNOSIS: ACUTE RESPIRATORY FAILURE, POST CARDIAC ARREST CARDIAC HISTORY: CATHERIZATION: NO SURGERY: YES PROSTHETIC VALVE: YES PACEMAKER: NO MEASUREMENTS (cm) DIASTOLIC (NORMALS) SYSTOLIC (NORMALS) IVSd 1.1 (0.6-1.2) LA Diam 3.5 (1.9-4.0) LVEF 58% LVIDd 4.5 (3.5-5.7) LVIDs 3.1 (2.0-3.5) %FS 31% LVPWd 1.1 (0.6-1.2) Ao Diam 2.5 (2.0-3.7) 2 DIMENSIONAL ASSESSMENT: RIGHT ATRIUM: NORMAL LEFT ATRIUM: DILATED RIGHT VENTRICLE: NORMAL LEFT VENTRICLE: NORMAL TRICUSPID VALVE: NORMAL MITRAL VALVE: MITRAL ANNULAR CALCIFICATION PULMONIC VALVE: NORMAL AORTIC VALVE: BIOPROSTETHIC PERICARDIAL EFFUSION: NONE AORTIC ROOT: NORMAL LEFT VENTRICULAR WALL MOTION: NORMAL DOPPLER/COLOR FLOW: NO SIGNIFICANT AORTIC STENOSIS OR AORTIC REGURGITATION. MILD TRICUSPID REGURGITATION. MILD PULMONARY HYPERTENSION. ESTIMATED RIGHT VENTRICULAR SYSTOLIC PRESSURE 45 mmHg. COMMENTS: NO SIGNIFICANT AORTIC STENOSIS OR AORTIC REGURGITATION. MILD TRICUSPID REGURGITATION. MILD PULMONARY HYPERTENSION. TECHNOLOGIST: Luis PHAM
--- NOTE | 2019-03-21 13:24 | EEG ---
CHART: [id number] TEST ID#: [id number] DATE OF STUDY: 03/21/2019 THE EEG WAS RECORDED PORTABLE IN THE ICU ON A 14 CHANNEL MACHINE. ELECTRODES WERE APPLIED IN THE USUAL MANNER USING THE INTERNATIONAL 10-20 SYSTEM. THERE IS NO ELECTRICAL ACTIVITY OF CEREBRAL ORGIN. ARTIFACT WERE IDENTIFIED. IMPRESSION: THIS EEG DEMONSTRATES NO ELECTRICAL ACTIVITY OF CEREBRAL ORGIN. IN THE ABSENCE OF DEEP HYPOTHERMIA, OR CERTAIN SEDATING MEDICATIONS THIS FINDING IS CONSISTENT WITH BRAIN .
[2019-03-21] MEDS ORDERED: AMIODARONE HCL 150 MG/3 ML INJ IV ONE (15:36)
[2019-03-21] MEDS ORDERED: EPINEPHrine 1 MG/10 ML SYR IV ONE (15:36)
[2019-03-21] MEDS ORDERED: DOPAMINE/D5W 400 MG/250 ML BAG IV ONE (15:36)
[2019-03-21] MEDS ORDERED: NA CHLORIDE 0.9% 1,000 ML IV ONE (15:36)
[2019-03-21 16:06] VITALS: O2SAT 98
[2019-03-21 22:21] VITALS: BP 108/46; TEMP 98.2
--- NOTE | 2019-03-22 00:10 | PN ---
Date of Progress Note: 03/21/2019 History: Patient was admitted with cardiogenic shock, over volume, acute kidney injury secondary to cardiogenic shock. Patient has anoxic encephalopathy. Physical Examination: Vital Signs: Blood pressure 106/48, pulse of 100. The patient still on dopamine and Levophed. Main tained on ventilator with 70% FiO2. Chest: Crackles bilateral. Heart: S1, S2 regular. Abdomen: Soft, nontender. Extremities: Plus edema. Laboratory Data: WBC 25.3, H and H 8 and 25.2, platelet 272. pH 7.22, CO2 62, O2 74. Sodium 132, p otassium 5.2, bicarb 27, BUN 44, creatinine 2.8, blood sugar 369, calcium 5.9, magnesium 1.6. Current Medications: The patient is on include, dopamine drip, Levophed drip, cefepime, vancomycin, and Lovenox. Assessment And Plan: 1.Acute kidney injury secondary to cardiorenal, poor perfusion, acute tubular necrosis, anuric, over volume. Patient had anoxic encephalopathy. EEG was flat. I am going to give the patient a single dose of Lasix currently, we will watch depending on the decision of the family regarding the care of the patient given at the hospice or end of life care or if the patient is going to continue on full c are. At that time, we will discuss about renal replacement therapy. 2.Hypertension, currently hypotension. Continue pressor. Hold all blood pressure medications. 3.Cardiogenic shock, over volume. Continue pressor. We will give single dose of Lasix. 4.Diabetes as by primary. 5.Hypercapnic respiratory failure. Continue vent support. DIEGO/JAMES Voice ID: [id number] Report ID: [id number]
[2019-03-22] MEDS ORDERED: ENOXAPARIN 30 MG/0.3 ML SQ SCH (09:00)
--- NOTE | 2019-03-26 13:24 | P.DS ---
Admission Date: 03/20/19 Discharge Date: 03/26/19 Primary Care Provider: Unknown Disposition: Discharge Condition: Reason for Admission: Cardiopulmonary arrest Consultations: Cardiology-Dr. Barron Pulmonary-Dr. Donaldson Nephrology-Dr. Beth Procedures: ECHO: EF 58% LEFT VENTRICULAR WALL MOTION: NORMAL DOPPLER/COLOR FLOW: NO SIGNIFICANT AORTIC STENOSIS OR AORTIC REGURGITATION. MILD TRICUSPID REGURGITATION. MILD PULMONARY HYPERTENSION. ESTIMATED RIGHT VENTRICULAR SYSTOLIC PRESSURE 45 mmHg. COMMENTS: NO SIGNIFICANT AORTIC STENOSIS OR AORTIC REGURGITATION. MILD TRICUSPID REGURGITATION. MILD PULMONARY HYPERTENSION. EEG: IMPRESSION: THIS EEG DEMONSTRATES NO ELECTRICAL ACTIVITY OF CEREBRAL ORGIN. IN THE ABSENCE OF DEEP HYPOTHERMIA, OR CERTAIN SEDATING MEDICATIONS THIS FINDING IS CONSISTENT WITH BRAIN . CXR: COMPARISON: March 20, 2019 FINDINGS: Endotracheal tube has its tip well above the akira [id number] bilateral pulmonary opacities with pleural effusions are without significant change The heart remains enlarged IMPRESSION: Mild to moderate CHF without significant change Medical Problem List: Acute respiratory failure likely related to acute on chronic systolic CHF status post cardiac arrest with PEA/CPR now with anoxic brain injury with EEG showing brain Acute on chronic renal disease stage III secondary to above Acute liver failure secondary to above Diabetes mellitus type 2 insulin dependent with hyperglycemia Anemia of chronic disease History of bioprosthetic valve replacement Brief History of Present Illness: 68-year-old female with history of hypertension, diabetes presented to the emergency room by EMS. Most of the information came from the ER physician and family. Patient had been complaining of shortness of breath over the past several days. She also reported cough, congestion. Today she became very short of breath. This was noted by her . As the shortness of breath got worse patient when an to cardiac arrest. EMS was called. CPR was not started until EMS arrived. This was likely around 5-10 min. The patient was then transferred to the ER for further evaluation. Patient came to the ER in PEA. CPR continued. Patient was intubated. A pulse was finally obtained. Patient remained in sinus rhythm. Upon further evaluation by the ER physician patient was found to have severe metabolic acidosis with acute respiratory failure likely related to CHF. The patient was started on IV antibiotic therapy, fluids, and vasopressors. Patient currently on dopamine and Levophed. Patient was admitted for further treatment. When I arrived the patient was intubated and sedated. Blood pressure was stabilized with vasopressor therapy. Hospital Course: Patient presented with cardiac arrest. Patient had reported increasing shortness of breath over the past week. He had a gotten worse. On the day of admission patient had worsening symptoms. She went into cardiac arrest at which point called EMS. EMS did not arrive until about 5-10 min thereafter. CPR was initiated at that time. Patient was transported to the ER with CPR in progress. Upon initial valuation in the emergency room, Patient was found in PEA. CPR was continued. Patient was ultimately intubated. Patient was ultimately stabilize. Patient required admission to ICU with vasopressor therapy to maintain blood pressure and on life support. Cardiology, pulmonology and nephrology were consulted. Shortness of breath likely related to acute on chronic diastolic CHF. Acute on chronic renal failure and acute liver failure also noted. The patient was stabilize in the ICU. Patient continued to worsen and decline. Case also was discussed further with Neurology. There was some concern of anoxic brain injury due to her poor progress. EEG performed showed brain . Due to her worsening symptoms and EEG findings, plan of care was readdressed with the patient's family members. Advanced directives were addressed in detail. Family understood her current condition and poor prognosis. They understood the EEG findings. After further discussion with family, patient was made do not resuscitate. Upon further discussion withdrawal of care was also discussed in detail. Patient's family decided to withdrawal care. Withdrawal of care was performed. Patient thereafter. June she rest in peace. Vital Signs/Physical Exam: Temp Pulse Resp BP Pulse Ox 98.2 F 102 H 10 L 108/46 L 98 03/21/19 21:00 03/21/19 21:00 03/21/19 21:00 03/21/19 21:00 03/21/19 21:00 General: Other (Patient ) Laboratory Data at Discharge: WBC 25.3 K/uL (4.3-10.9) H* D 03/21/19 04:45 Hgb 8.0 g/dL (12.0-15.0) L 03/21/19 04:45 Hct 25.2 % (36.0-45.0) L 03/21/19 04:45 Plt Count 272 K/uL (152-406) D 03/21/19 04:45 PT 11.5 SECONDS (9.5-12.5) 03/20/19 08:15 INR 0.97 03/20/19 08:15 APTT 35.5 SECONDS (24.3-36.9) 03/20/19 08:15 Sodium 132 mmol/L (136-145) L 03/21/19 04:45 Potassium 5.1 mmol/L (3.5-5.1) 03/21/19 04:45 BUN 44 mg/dL (7-18) H 03/21/19 04:45 Creatinine 2.80 mg/dL (0.55-1.3) H 03/21/19 04:45 Glucose 369 mg/dL (74-106) H 03/21/19 04:45 Phosphorus Cancelled 03/22/19 05:00 Magnesium 1.6 mg/dL (1.8-2.4) L D 03/21/19 04:45 Total Bilirubin 0.4 mg/dL (0.2-1.0) 03/21/19 04:45 AST 290 U/L (15-37) H 03/21/19 04:45 ALT 290 U/L (12-78) H 03/21/19 04:45 Alkaline Phosphatase 82 U/L (45-117) 03/21/19 04:45 Troponin I 13.40 ng/mL (0.0-0.045) H* D 03/21/19 00:05 Triglycerides 90 mg/dL (<150) 03/21/19 04:45 Cholesterol 104 mg/dL (<200) 03/21/19 04:45 HDL Cholesterol 70 mg/dL (40-60) H 03/21/19 04:45 Cholesterol/HDL Ratio 1.49 03/21/19 04:45 Lipase 220 U/L (73-393) 03/20/19 08:15 Home Medications: NK [No Home Meds] 03/20/19 Patient Discharge Instructions: Patient . May she rest in peace. Time spent managing pt's care (in minutes): 55
== END 2019-03-21 23:30 | disposition expired | DRG 208 ==
LOC: ER 07:14 → ERHOLD 09:50 → 3RD-ICU 18:28
PROVIDERS: ADMIT Family Medicine; ATTEND Family Medicine
PROC: 0BH17EZ Insertion of Endotracheal Airway into Trachea, Via Natural or Artificial Opening (ICD-10-PCS; principal; 2019-03-20)
PROC: 5A1945Z Respiratory Ventilation, 24-96 Consecutive Hours (ICD-10-PCS; 2019-03-20)
DX: J96.02 Acute respiratory failure with hypercapnia (principal); I50.23 Acute on chronic systolic (congestive) heart failure; K72.00 Acute and subacute hepatic failure without coma; N17.0 Acute kidney failure with tubular necrosis; I13.0 Hypertensive heart and chronic kidney disease with heart failure and stage 1 through stage 4 chronic kidney disease, or unspecified chronic kidney disease; E87.2 Acidosis; G93.1 Anoxic brain damage, not elsewhere classified; I46.9 Cardiac arrest, cause unspecified; R57.0 Cardiogenic shock; N18.3 Chronic kidney disease, stage 3 (moderate); E11.22 Type 2 diabetes mellitus with diabetic chronic kidney disease; E11.65 Type 2 diabetes mellitus with hyperglycemia; I44.7 Left bundle-branch block, unspecified; D63.8 Anemia in other chronic diseases classified elsewhere; I25.10 Atherosclerotic heart disease of native coronary artery without angina pectoris; Z66 Do not resuscitate; Z95.2 Presence of prosthetic heart valve; Z79.4 Long term (current) use of insulin; Z95.5 Presence of coronary angioplasty implant and graft
CPT/HCPCS: 31500; 36415; 51702; 71045; 80048; 80053; 80061; 80076; 82533; 82550; 82553; 82805; 82947; 83605; 83690; 83735; 83880; 84145; 84439; 84443; 84484; 85025; 85610; 85730; 87040; 87804; 92950; 93005; 93306; 94002; 94003; 95816; 99291; 99292; J0171; J0282; J0610; J0692; J1265; J1650; J1720; J1940; J3411; J3475; J7030; J7040; J7060